=== PATIENT | male | born 1960 | race Caucasian/White ===

== ENCOUNTER → 2016-05-19 | Outpatient (POV) | payer BC, OTHER ==
[~2016-05-19] MED LIST: AMLO25TA PO; AMLO5TAB2 PO; ASPI325T PO; ASPI81TA85 PO; ATEN25TA PO; ATOR40TA PO; BENA25CA2 PO; COUM1TAB17 PO; ELIQ5TAB PO; FENO160T10 PO; FLEC1TAB PO; FLEC50TA PO; LEVO100T5 PO; LEVO137T2 PO; LIPI20TA PO; LOSA25TA8 PO; PERC5TAB6 PO; SPIR25TA2 PO; ZYRT10TA2 PO; levothroid PO
== END ==
LOC: M IRPOV 08:26
DX: I83.228 Varicose veins of left lower extremity with both ulcer of other part of lower extremity and inflammation (principal); I83.813 Varicose veins of bilateral lower extremities with pain; I83.893 Varicose veins of bilateral lower extremities with other complications

== ENCOUNTER → 2016-05-21 | Outpatient (CLI) | payer BC, OTHER ==
--- NOTE | 2016-05-21 14:38 | REP ---
Unilateral right lower extremity duplex venous ultrasound with reflux evaluation: History: Bilateral varicose veins. Right leg reflux. Technique: The deep veins in the right lower extremity are anechoic and fully compressible on two-dimensional scanning from the right groin to the right popliteal fossa. Color flow imaging is homogeneous. Spectral Doppler interrogation demonstrates intact respiratory variation in flow and normal manual augmentation of flow. There is no evidence of DVT. Reflux findings: Reflux greater than 0.5 seconds in duration is seen in the vein. Reflux measuring 1.8 seconds in duration is seen in the greater saphenous vein at the saphenofemoral junction where the vein measures 6.9 mm in AP dimension. This was observed in the standing position. Reflux is observed in the greater saphenous vein at mid thigh, 3.8 seconds in duration where the vein measures 6.8 mm in AP dimension. Reflux was observed in the greater saphenous vein at the level of the knee, 4.0 seconds in duration where the vein measures 8.9 mm in AP dimension. The greater saphenous vein in the upper calf demonstrates reflux of 5.2 seconds in duration. The vein measures 5.4 mm. No reflux was observed in the superficial femoral vein, popliteal vein. No anterior accessory greater saphenous vein was seen. There are multiple small collaterals off the greater saphenous vein in the upper thigh and collateral vein becoming a varicose vein is seen in the upper calf. Impression: Multilevel venous reflux as described above. Signed by Lorenzo Hicks MD 05/21/2016 02:42 P
== END ==
LOC: M RAD 10:58
DX: I83.93 Asymptomatic varicose veins of bilateral lower extremities (principal)

== ENCOUNTER 2016-06-22 15:42 | Emergency (ER) | payer BC, OTHER ==
[2016-06-22] MEDS ORDERED: dexameTHASONE 20 MG/5 ML VIAL (J1100) As Ordered ONE (16:04)
[2016-06-22] MEDS ORDERED: FAMOTIDINE INJ 20MG/2ML VIAL (S0028) As Ordered ONE (16:05)
[2016-06-22] MEDS ORDERED: diphenhydrAMINE INJ 50MG/ML VIAL (J1200) As Ordered ONE (16:05)
--- NOTE | 2016-06-22 18:48 | EDDOCDS ---
Physician Documentation [facility] Name: Nelson Michelle Age: 56 yrs Sex: Male : 1960 Arrival Date: 06/22/2016 Time: 15:42 Bed 11 Private MD: Brando Toro H. Disposition: 06/22/16 18:08 Discharged to Home/Self Care. Impression: Anaphylactic reaction due to shellfish (crustaceans). - Condition is Stable. - Discharge Instructions: Seafood Allergy. - Prescriptions for Benadryl 25 mg Oral Capsule - take 1 capsule by ORAL route every 6 hours As needed; 30 tablet. Prilosec 20 mg Oral Capsule - take 1 capsule by ORAL route once daily; 10 capsule. Prednisone 20 mg Oral Tablet - take 1 tablet by ORAL route as directed Day 1-3: 3 po, day 4-7: 2 po, day 8-10: 1 po; 20 tablet. - Medication Reconciliation, Local Pharmacy Hours form. - Follow up: Brando Toro; When: 4 - 5 days; Reason: Recheck today's complaints, Continuance of care. - Problem is an acute exacerbation. - Symptoms have improved. - Notes: return any problems Historical: - Allergies: PENICILLINS; STEPH Inhibitors (cough); - Home Meds: 1. aspirin 81 mg Oral chew 1 tab once daily (Last dose: 06/22/2016 07:30) 2. Chlorthalidone 12.5mg Oral once daily (Last dose: 06/22/2016 09:30) 3. Eliquis 5 mg oral tab daily (Last dose: 06/21/2016) 4. fenofibrate 150 mg oral cap 1 cap once daily (Last dose: 06/21/2016) 5. Spironolactone 12.5mg Oral nightly (Last dose: 06/21/2016) 6. lamotrigine 100 mg Oral TbDL 1 tab 2 times per day (Last dose: 06/22/2016 09:30) 7. Levothyroxine 237 mcg Oral once daily (Last dose: 06/22/2016 09:30) 8. metoprolol tartrate 25 mg Oral tab 1 tab once daily (Last dose: 06/21/2016) 9. Norvasc 10 mg Oral tab 1 tab once daily (Last dose: 06/22/2016 09:30) 10. omeprazole 40 mg Oral cpDR 1 cap 2 times per day (Last dose: 06/22/2016 09:30) - PMHx: Seizures; Hypercholesterolemia; Hypertension; GERD; Stroke; thyroid cancer; tonsilar ca; padgets; Sleep Apnea w/ BiPap; VENOUS INSUFFICIENCY IN LEGS; LEFT RADICAL NECK DISSECTION; - PSHx: open heart surgery; thyroidectomy; Tonsillectomy; a fib; loop recorder; CABG; HEART ABLATION; TESTICULAR TORSION; Lasik Surgery; - Social history: Smoking status: other No barriers to communication noted, The patient speaks fluent Welsh, Speaks appropriately for age. - : The pt / caregiver states he / she is on anticoagulants: Eliquis Home medication list is obtained from family members. - Exposure Risk Screening:: None identified. Vital Signs: 06/22 15:44 BP 151 / 83; Pulse 88; Resp 18 S; Temp 98.4; Pulse Ox 97% on R/A; Weight 111.13 kg / gr2 245 lbs (R); Height 5 ft. 8 in. (172.72 cm) (R); Pain 3/10; 16:17 BP 145 / 88; Pulse 80; Resp 20 S; Pulse Ox 98% on R/A; ms2 18:46 BP 136 / 78; Pulse 76; Resp 16; Pulse Ox 97% on R/A; mem 15:44 Body Mass Index 37.25 (111.13 kg, 172.72 cm) gr2 MDM: 16:03 Dexamethasone 10 mg IV at bolus once ordered. sd1 16:03 diphenhydrAMINE 50 mg IVP once ordered. sd1 16:03 Famotidine 20 mg IVPB once over 30 mins; dilute in 50mL of NS ordered. sd1 16:09 NS 0.9% 1000 ml IV at bolus once ordered. 18:08 Financial registration complete. [email or web address] 18:16 [facility] Agreement was scanned into [employer] and attached to record. [email or web address] Administered Medications: 16:05 Drug: diphenhydrAMINE 50 mg [diphenhydramine 50 mg/mL injection solution (1 mL)] Route: ms2 IVP; Site: left antecubital; 16:17 Follow up: BP 145 / 88; Pulse 80 bpm; Resp 20 bpm Spontaneous; Pulse Ox 98% RA ms2 16:11 Drug: Dexamethasone 10 mg [dexamethasone 4 mg/mL injection solution] Route: IV; Rate: ms2 bolus; Site: left antecubital; 16:12 Drug: Famotidine 20 mg [famotidine 10 mg/mL intravenous solution] Route: IVPB; Infused ms2 Over: 30 mins; Site: left antecubital; 16:18 Drug: NS 0.9% 1000 ml [sodium chloride 0.9 % intravenous solution] Route: IV; Rate: ms2 bolus; Site: left antecubital; 18:42 Follow up: IV Status: Completed infusion; IV Intake: 1000ml mem Signatures: Maddison Noriega MD MD sd1 Juliet Kumar RN RN [facility] Randy Carolina, TRAVEL COUNSELOR TRAVEL COUNSELOR Deya Oconnell RN RN [facility] Katheryn Schaeffer, Reg Reg [email or web address] Jc Emerson RN ms2 The chart was reviewed and I authenticate all verbal orders and agree with the evaluation and treatment provided.Attachments: 18:16 [facility] Payment Agreement [email or web address] MTDD
--- NOTE | 2016-06-22 18:48 | EDDOCDS ---
Nurse's Notes [facility] Name: Nelson Michelle Age: 56 yrs Sex: Male : 1960 Arrival Date: 06/22/2016 Time: 15:42 Bed 11 Private MD: Brando Toro H. Diagnosis: Anaphylactic reaction due to shellfish (crustaceans) Presentation: 06/22 15:55 Presenting complaint: Patient states: ate clam chowder at noon time. started swelling srm to eyes at 1410 and 50mg benadryl at 1430. swelling to lip and throat scratchy. Onset: The symptoms/episode began/occurred 2 hour(s) ago. This patient has not experienced a previous allergic reaction. Anaphylaxis evaluation, the patient reports or I have noted the following symptoms which indicate a significant risk of anaphylaxis: angioedema. Adult Sepsis Screening: The patient does not have new or worsening altered mentation. Patient's respiratory rate is less than 22. Systolic blood pressure is greater than 100. Patient has a qSOFA score of 0- Negative Sepsis Screen. Suicide/Homicide risk assessment- the patient denies having any suicidal and/or homicidal ideations and does not present with any other emotional, behavioral or mental health complaints. Status: Patient is not a lawn service worker or dependent. Transition of care: patient was not received from another setting of care. 15:55 Acuity: ZAY Level 2 [facility] 15:55 Method Of Arrival: Walkin/Carried/Asstd [facility] Triage Assessment: 16:04 General: Appears in no apparent distress, Behavior is appropriate for age, cooperative. srm Pain: Denies pain. Respiratory: Reports THROAT SCRATCHY. Historical: - Allergies: PENICILLINS; STEPH Inhibitors (cough); - Home Meds: 1. aspirin 81 mg Oral chew 1 tab once daily (Last dose: 06/22/2016 07:30) 2. Chlorthalidone 12.5mg Oral once daily (Last dose: 06/22/2016 09:30) 3. Eliquis 5 mg oral tab daily (Last dose: 06/21/2016) 4. fenofibrate 150 mg oral cap 1 cap once daily (Last dose: 06/21/2016) 5. Spironolactone 12.5mg Oral nightly (Last dose: 06/21/2016) 6. lamotrigine 100 mg Oral TbDL 1 tab 2 times per day (Last dose: 06/22/2016 09:30) 7. Levothyroxine 237 mcg Oral once daily (Last dose: 06/22/2016 09:30) 8. metoprolol tartrate 25 mg Oral tab 1 tab once daily (Last dose: 06/21/2016) 9. Norvasc 10 mg Oral tab 1 tab once daily (Last dose: 06/22/2016 09:30) 10. omeprazole 40 mg Oral cpDR 1 cap 2 times per day (Last dose: 06/22/2016 09:30) - PMHx: Seizures; Hypercholesterolemia; Hypertension; GERD; Stroke; thyroid cancer; tonsilar ca; padgets; Sleep Apnea w/ BiPap; VENOUS INSUFFICIENCY IN LEGS; LEFT RADICAL NECK DISSECTION; - PSHx: open heart surgery; thyroidectomy; Tonsillectomy; a fib; loop recorder; CABG; HEART ABLATION; TESTICULAR TORSION; Lasik Surgery; - Social history: Smoking status: other No barriers to communication noted, The patient speaks fluent Paraguayan, Speaks appropriately for age. - : The pt / caregiver states he / she is on anticoagulants: Eliquis Home medication list is obtained from family members. - Exposure Risk Screening:: None identified. Screenin:22 Screening information is obtained from the patient. Fall risk: No risks identified. ms2 Assistance ADL's: requires no assistance with activities of daily living. Abuse/DV Screen: The patient / caregiver reports he/she is: not in a situation that causes fear, pain or injury. Nutritional screening: No deficits noted. Advance Directives: Currently, there is a health care proxy, -aleksandar. There is no active DNR order. There is no living will. There is no Power of Trade Specialist. Advance directive information has not previously been placed in an [facility] medical record. Further advance directive information is declined. home support is adequate. Assessment: 16:10 General: Appears in no apparent distress, Behavior is cooperative, family with pt. ms2 Neurological: Level of Consciousness is awake, alert, obeys commands. Respiratory: Airway is patent Respiratory effort is even, unlabored, Respiratory pattern is regular, symmetrical, Respiratory: Breath sounds are clear bilaterally. GI: Abdomen is flat, non- distended. Derm: Skin is pink, warm & dry. Musculoskeletal: Range of motion intact in all extremities. 16:45 General: Appears in no apparent distress, Behavior is cooperative. Neurological: No ms2 deficits noted. Respiratory: No deficits noted. Airway is patent Respiratory effort is even, unlabored, Respiratory pattern is regular, symmetrical, tongue not swollen-voice raspy-no change from 1610 Breath sounds are clear bilaterally. GI: No deficits noted. Derm: Skin is pink, warm & dry. Musculoskeletal: No deficits noted. 17:21 General: Appears in no apparent distress, Behavior is cooperative, pleasant. Pain: jc4 Denies pain. Neurological: Level of Consciousness is awake, alert, Oriented to person, place, time. EENT: Denies any difficulty swallowing, is able to accommodate saliva. Cardiovascular: Heart tones S1 S2 present. Respiratory: Airway is patent Respiratory effort is even, unlabored, Respiratory pattern is regular, symmetrical, Breath sounds are clear bilaterally. Derm: Skin is pink, warm & dry. swelling noted surrounding both eyes. Pt states "I wasn't even able to see earlier, but I can a little bit now". Vital Signs: 15:44 BP 151 / 83; Pulse 88; Resp 18 S; Temp 98.4; Pulse Ox 97% on R/A; Weight 111.13 kg (R); gr2 Height 5 ft. 8 in. (172.72 cm) (R); Pain 3/10; 16:17 BP 145 / 88; Pulse 80; Resp 20 S; Pulse Ox 98% on R/A; ms2 18:46 BP 136 / 78; Pulse 76; Resp 16; Pulse Ox 97% on R/A; mem 15:44 Body Mass Index 37.25 (111.13 kg, 172.72 cm) gr2 Vitals: 15:44 Log In Time: June 22, 2016 at 15:44. RN notified that patient meets Red Flag gr2 criteria. ED Course: 15:44 Patient visited by Nelida Bajwa. gr2 15:44 Brando Toro is Private Physician. gr2 15:44 Patient moved to Waiting gr2 15:46 Patient visited by Nelida Bajwa. gr2 15:47 Patient visited by Nelida Bajwa. gr2 15:52 Patient moved to srm 15:57 Triage Initiated srm 16:05 Randy Carolina FNP [facility]. ke 16:05 Patient visited by Randy Carolina FNP. ke 16:05 Patient visited by Randy Carolina FNP. ke 16:23 The patient / caregiver is instructed regarding the plan of care and ED course. ms2 16:23 IV is patent, is intact, is free of redness or swelling. solution is infusing as ms2 ordered. pt has a # 18 in left ac-clear. No procedures done that require assistance. 16:40 Patient visited by Randy Carolina FNP. ke 16:49 Patient visited by Jc Emerson RN. ms2 16:50 The patient / caregiver is instructed regarding the plan of care and ED course. ms2 16:50 IV is patent, is intact, is free of redness or swelling. solution is infusing as ms2 ordered. 17:02 Mayelin Cano,J CARLOS is Primary Nurse. [facility] 17:02 Patient moved to 11 [facility] 17:21 Patient visited by Randy Carolina FNP. ke 17:22 Patient visited by Odalis Soriano RN. jc4 17:49 Patient visited by Randy Carolina FNP. ke 18:07 Brando Toro is Referral Physician. ke 18:16 [facility] Payment Agreement was scanned into [employer] and attached to record. [email or web address] 18:43 Discontinued bleeding controlled, pressure dressing applied, No redness/swelling at mem site. patient tolerated removal well. Administered Medications: 16:05 Drug: diphenhydrAMINE 50 mg [diphenhydramine 50 mg/mL injection solution (1 mL)] Route: ms2 IVP; Site: left antecubital; 16:17 Follow up: BP 145 / 88; Pulse 80 bpm; Resp 20 bpm Spontaneous; Pulse Ox 98% RA ms2 16:11 Drug: Dexamethasone 10 mg [dexamethasone 4 mg/mL injection solution] Route: IV; Rate: ms2 bolus; Site: left antecubital; 16:12 Drug: Famotidine 20 mg [famotidine 10 mg/mL intravenous solution] Route: IVPB; Infused ms2 Over: 30 mins; Site: left antecubital; 16:18 Drug: NS 0.9% 1000 ml [sodium chloride 0.9 % intravenous solution] Route: IV; Rate: ms2 bolus; Site: left antecubital; 18:42 Follow up: IV Status: Completed infusion; IV Intake: 1000ml mem Intake: 18:42 IV: 1000.00ml; Total: 1000.00ml. mem Order Results: There are currently no results for this order. Outcome: 18:08 Discharge ordered by Provider. [email or web address] 18:44 Discharge Assessment: Patient awake, alert and oriented x 3. No cognitive and/or mem functional deficits noted. Patient verbalized understanding of disposition instructions. swelling to eyes reduced, patient states he is feeling much better. at bedside. Iv removed, discharge instructions given to patient. Verbalized understanding. Discharged to home ambulatory, with family, walked to the waiting room with . 18:47 Patient left the ED. mem Signatures: Jc Emerson,RN RN ms2 Juliet Kumar RN RN srm Peters, Mary RN RN [facility] Randy Carolina FNP SUPERINTENDENT MAINTENANCE Odalis Pete RN RN Nelida Bragg [facility] Deya Nunez RN RN mem Sorenson, Kimberly, Reg Reg ks16 BRANDON
--- NOTE | 2016-06-24 19:48 | EDDOCDS ---
Physician Documentation [facility] Name: Nelson Michelle Age: 56 yrs Sex: Male : 1960 Arrival Date: 06/22/2016 Time: 15:42 Bed 11 Private MD: Brando Toro H. Disposition: 06/22/16 18:08 Discharged to Home/Self Care. Impression: Anaphylactic reaction due to shellfish (crustaceans). - Condition is Stable. - Discharge Instructions: Seafood Allergy. - Prescriptions for Benadryl 25 mg Oral Capsule - take 1 capsule by ORAL route every 6 hours As needed; 30 tablet. Prilosec 20 mg Oral Capsule - take 1 capsule by ORAL route once daily; 10 capsule. Prednisone 20 mg Oral Tablet - take 1 tablet by ORAL route as directed Day 1-3: 3 po, day 4-7: 2 po, day 8-10: 1 po; 20 tablet. - Medication Reconciliation, Local Pharmacy Hours form. - Follow up: Brando Toro; When: 4 - 5 days; Reason: Recheck today's complaints, Continuance of care. - Problem is an acute exacerbation. - Symptoms have improved. - Notes: return any problems Historical: - Allergies: PENICILLINS; STEPH Inhibitors (cough); - Home Meds: 1. aspirin 81 mg Oral chew 1 tab once daily (Last dose: 06/22/2016 07:30) 2. Chlorthalidone 12.5mg Oral once daily (Last dose: 06/22/2016 09:30) 3. Eliquis 5 mg oral tab daily (Last dose: 06/21/2016) 4. fenofibrate 150 mg oral cap 1 cap once daily (Last dose: 06/21/2016) 5. Spironolactone 12.5mg Oral nightly (Last dose: 06/21/2016) 6. lamotrigine 100 mg Oral TbDL 1 tab 2 times per day (Last dose: 06/22/2016 09:30) 7. Levothyroxine 237 mcg Oral once daily (Last dose: 06/22/2016 09:30) 8. metoprolol tartrate 25 mg Oral tab 1 tab once daily (Last dose: 06/21/2016) 9. Norvasc 10 mg Oral tab 1 tab once daily (Last dose: 06/22/2016 09:30) 10. omeprazole 40 mg Oral cpDR 1 cap 2 times per day (Last dose: 06/22/2016 09:30) - PMHx: Seizures; Hypercholesterolemia; Hypertension; GERD; Stroke; thyroid cancer; tonsilar ca; padgets; Sleep Apnea w/ BiPap; VENOUS INSUFFICIENCY IN LEGS; LEFT RADICAL NECK DISSECTION; - PSHx: open heart surgery; thyroidectomy; Tonsillectomy; a fib; loop recorder; CABG; HEART ABLATION; TESTICULAR TORSION; Lasik Surgery; - Social history: Smoking status: other No barriers to communication noted, The patient speaks fluent Estonian, Speaks appropriately for age. - : The pt / caregiver states he / she is on anticoagulants: Eliquis Home medication list is obtained from family members. - Exposure Risk Screening:: None identified. Vital Signs: 06/22 15:44 BP 151 / 83; Pulse 88; Resp 18 S; Temp 98.4; Pulse Ox 97% on R/A; Weight 111.13 kg / gr2 245 lbs (R); Height 5 ft. 8 in. (172.72 cm) (R); Pain 3/10; 16:17 BP 145 / 88; Pulse 80; Resp 20 S; Pulse Ox 98% on R/A; ms2 18:46 BP 136 / 78; Pulse 76; Resp 16; Pulse Ox 97% on R/A; mem 15:44 Body Mass Index 37.25 (111.13 kg, 172.72 cm) gr2 MDM: 16:03 Dexamethasone 10 mg IV at bolus once ordered. sd1 16:03 diphenhydrAMINE 50 mg IVP once ordered. sd1 16:03 Famotidine 20 mg IVPB once over 30 mins; dilute in 50mL of NS ordered. sd1 16:09 NS 0.9% 1000 ml IV at bolus once ordered. 18:08 Financial registration complete. [email or web address] 18:16 [facility] Payment Agreement was scanned into [employer] and attached to record. [facility] 06/23 13:46 T-Sheet-- Draft Copy was scanned into [employer] and attached to record. gb Administered Medications: 06/22 16:05 Drug: diphenhydrAMINE 50 mg [diphenhydramine 50 mg/mL injection solution (1 mL)] Route: ms2 IVP; Site: left antecubital; 16:17 Follow up: BP 145 / 88; Pulse 80 bpm; Resp 20 bpm Spontaneous; Pulse Ox 98% RA ms2 16:11 Drug: Dexamethasone 10 mg [dexamethasone 4 mg/mL injection solution] Route: IV; Rate: ms2 bolus; Site: left antecubital; 16:12 Drug: Famotidine 20 mg [famotidine 10 mg/mL intravenous solution] Route: IVPB; Infused ms2 Over: 30 mins; Site: left antecubital; 16:18 Drug: NS 0.9% 1000 ml [sodium chloride 0.9 % intravenous solution] Route: IV; Rate: ms2 bolus; Site: left antecubital; 18:42 Follow up: IV Status: Completed infusion; IV Intake: 1000ml mem Signatures: Maddison Noriega MD MD sd1 Juliet Kumar RN RN [facility] Preeti Jc, Reg Reg Randy Carolina, KNOWLEDGE ENGINEER [facility] Deya Oconnell RN RN [facility] Katheryn Schaeffer, Reg Reg [email or web address] Jc Emerson RN ms2 The chart was reviewed and I authenticate all verbal orders and agree with the evaluation and treatment provided.Attachments: 18:16 [facility] Payment Agreement [email or web address] 06/23 13:46 T-Sheet-- Draft Copy Chart Complete MTDD
--- NOTE | 2016-06-24 19:48 | EDDOCDS ---
Physician Documentation [facility] Name: Nelson Michelle Age: 56 yrs Sex: Male : 1960 Arrival Date: 06/22/2016 Time: 15:42 Bed 11 Private MD: Brando Toro H. Disposition: 06/22/16 18:08 Discharged to Home/Self Care. Impression: Anaphylactic reaction due to shellfish (crustaceans). - Condition is Stable. - Discharge Instructions: Seafood Allergy. - Prescriptions for Benadryl 25 mg Oral Capsule - take 1 capsule by ORAL route every 6 hours As needed; 30 tablet. Prilosec 20 mg Oral Capsule - take 1 capsule by ORAL route once daily; 10 capsule. Prednisone 20 mg Oral Tablet - take 1 tablet by ORAL route as directed Day 1-3: 3 po, day 4-7: 2 po, day 8-10: 1 po; 20 tablet. - Medication Reconciliation, Local Pharmacy Hours form. - Follow up: Brando Toro; When: 4 - 5 days; Reason: Recheck today's complaints, Continuance of care. - Problem is an acute exacerbation. - Symptoms have improved. - Notes: return any problems Historical: - Allergies: PENICILLINS; STEPH Inhibitors (cough); - Home Meds: 1. aspirin 81 mg Oral chew 1 tab once daily (Last dose: 06/22/2016 07:30) 2. Chlorthalidone 12.5mg Oral once daily (Last dose: 06/22/2016 09:30) 3. Eliquis 5 mg oral tab daily (Last dose: 06/21/2016) 4. fenofibrate 150 mg oral cap 1 cap once daily (Last dose: 06/21/2016) 5. Spironolactone 12.5mg Oral nightly (Last dose: 06/21/2016) 6. lamotrigine 100 mg Oral TbDL 1 tab 2 times per day (Last dose: 06/22/2016 09:30) 7. Levothyroxine 237 mcg Oral once daily (Last dose: 06/22/2016 09:30) 8. metoprolol tartrate 25 mg Oral tab 1 tab once daily (Last dose: 06/21/2016) 9. Norvasc 10 mg Oral tab 1 tab once daily (Last dose: 06/22/2016 09:30) 10. omeprazole 40 mg Oral cpDR 1 cap 2 times per day (Last dose: 06/22/2016 09:30) - PMHx: Seizures; Hypercholesterolemia; Hypertension; GERD; Stroke; thyroid cancer; tonsilar ca; padgets; Sleep Apnea w/ BiPap; VENOUS INSUFFICIENCY IN LEGS; LEFT RADICAL NECK DISSECTION; - PSHx: open heart surgery; thyroidectomy; Tonsillectomy; a fib; loop recorder; CABG; HEART ABLATION; TESTICULAR TORSION; Lasik Surgery; - Social history: Smoking status: other No barriers to communication noted, The patient speaks fluent Danish, Speaks appropriately for age. - : The pt / caregiver states he / she is on anticoagulants: Eliquis Home medication list is obtained from family members. - Exposure Risk Screening:: None identified. Vital Signs: 06/22 15:44 BP 151 / 83; Pulse 88; Resp 18 S; Temp 98.4; Pulse Ox 97% on R/A; Weight 111.13 kg / gr2 245 lbs (R); Height 5 ft. 8 in. (172.72 cm) (R); Pain 3/10; 16:17 BP 145 / 88; Pulse 80; Resp 20 S; Pulse Ox 98% on R/A; ms2 18:46 BP 136 / 78; Pulse 76; Resp 16; Pulse Ox 97% on R/A; mem 15:44 Body Mass Index 37.25 (111.13 kg, 172.72 cm) gr2 MDM: 16:03 Dexamethasone 10 mg IV at bolus once ordered. sd1 16:03 diphenhydrAMINE 50 mg IVP once ordered. sd1 16:03 Famotidine 20 mg IVPB once over 30 mins; dilute in 50mL of NS ordered. sd1 16:09 NS 0.9% 1000 ml IV at bolus once ordered. 18:08 Financial registration complete. [email or web address] 18:16 [facility] Payment Agreement was scanned into [employer] and attached to record. [facility] 06/23 13:46 T-Sheet-- Draft Copy was scanned into [employer] and attached to record. gb Administered Medications: 06/22 16:05 Drug: diphenhydrAMINE 50 mg [diphenhydramine 50 mg/mL injection solution (1 mL)] Route: ms2 IVP; Site: left antecubital; 16:17 Follow up: BP 145 / 88; Pulse 80 bpm; Resp 20 bpm Spontaneous; Pulse Ox 98% RA ms2 16:11 Drug: Dexamethasone 10 mg [dexamethasone 4 mg/mL injection solution] Route: IV; Rate: ms2 bolus; Site: left antecubital; 16:12 Drug: Famotidine 20 mg [famotidine 10 mg/mL intravenous solution] Route: IVPB; Infused ms2 Over: 30 mins; Site: left antecubital; 16:18 Drug: NS 0.9% 1000 ml [sodium chloride 0.9 % intravenous solution] Route: IV; Rate: ms2 bolus; Site: left antecubital; 18:42 Follow up: IV Status: Completed infusion; IV Intake: 1000ml mem Signatures: Maddison Noriega MD MD sd1 Juliet Kumar RN RN [facility] Preeti Jc, Reg Reg Randy Carolina, [facility] Deya Oconnell RN RN [facility] [place] [place] Katheryn Schaeffer, Reg Reg [email or web address] Jc Emerson RN ms2 The chart was reviewed and I authenticate all verbal orders and agree with the evaluation and treatment provided.Attachments: 18:16 [facility] Payment Agreement [email or web address] 06/23 13:46 T-Sheet-- Draft Copy Chart Complete MTDD
--- NOTE | 2016-06-24 19:48 | EDDOCDS ---
Nurse's Notes [facility] Name: Nelson Michelle Age: 56 yrs Sex: Male : 1960 Arrival Date: 06/22/2016 Time: 15:42 Bed 11 Private MD: Brando Toro H. Diagnosis: Anaphylactic reaction due to shellfish (crustaceans) Presentation: 06/22 15:55 Presenting complaint: Patient states: ate clam chowder at noon time. started swelling srm to eyes at 1410 and 50mg benadryl at 1430. swelling to lip and throat scratchy. Onset: The symptoms/episode began/occurred 2 hour(s) ago. This patient has not experienced a previous allergic reaction. Anaphylaxis evaluation, the patient reports or I have noted the following symptoms which indicate a significant risk of anaphylaxis: angioedema. Adult Sepsis Screening: The patient does not have new or worsening altered mentation. Patient's respiratory rate is less than 22. Systolic blood pressure is greater than 100. Patient has a qSOFA score of 0- Negative Sepsis Screen. Suicide/Homicide risk assessment- the patient denies having any suicidal and/or homicidal ideations and does not present with any other emotional, behavioral or mental health complaints. Status: Patient is not a member service specialist or dependent. Transition of care: patient was not received from another setting of care. 15:55 Acuity: ZAY Level 2 [facility] 15:55 Method Of Arrival: Walkin/Carried/Asstd [facility] Triage Assessment: 16:04 General: Appears in no apparent distress, Behavior is appropriate for age, cooperative. srm Pain: Denies pain. Respiratory: Reports THROAT SCRATCHY. Historical: - Allergies: PENICILLINS; STEPH Inhibitors (cough); - Home Meds: 1. aspirin 81 mg Oral chew 1 tab once daily (Last dose: 06/22/2016 07:30) 2. Chlorthalidone 12.5mg Oral once daily (Last dose: 06/22/2016 09:30) 3. Eliquis 5 mg oral tab daily (Last dose: 06/21/2016) 4. fenofibrate 150 mg oral cap 1 cap once daily (Last dose: 06/21/2016) 5. Spironolactone 12.5mg Oral nightly (Last dose: 06/21/2016) 6. lamotrigine 100 mg Oral TbDL 1 tab 2 times per day (Last dose: 06/22/2016 09:30) 7. Levothyroxine 237 mcg Oral once daily (Last dose: 06/22/2016 09:30) 8. metoprolol tartrate 25 mg Oral tab 1 tab once daily (Last dose: 06/21/2016) 9. Norvasc 10 mg Oral tab 1 tab once daily (Last dose: 06/22/2016 09:30) 10. omeprazole 40 mg Oral cpDR 1 cap 2 times per day (Last dose: 06/22/2016 09:30) - PMHx: Seizures; Hypercholesterolemia; Hypertension; GERD; Stroke; thyroid cancer; tonsilar ca; padgets; Sleep Apnea w/ BiPap; VENOUS INSUFFICIENCY IN LEGS; LEFT RADICAL NECK DISSECTION; - PSHx: open heart surgery; thyroidectomy; Tonsillectomy; a fib; loop recorder; CABG; HEART ABLATION; TESTICULAR TORSION; Lasik Surgery; - Social history: Smoking status: other No barriers to communication noted, The patient speaks fluent Emirati, Speaks appropriately for age. - : The pt / caregiver states he / she is on anticoagulants: Eliquis Home medication list is obtained from family members. - Exposure Risk Screening:: None identified. Screenin:22 Screening information is obtained from the patient. Fall risk: No risks identified. ms2 Assistance ADL's: requires no assistance with activities of daily living. Abuse/DV Screen: The patient / caregiver reports he/she is: not in a situation that causes fear, pain or injury. Nutritional screening: No deficits noted. Advance Directives: Currently, there is a health care proxy, -aleksandar. There is no active DNR order. There is no living will. There is no Power of Tobacco Farmworker. Advance directive information has not previously been placed in an [facility] medical record. Further advance directive information is declined. home support is adequate. Assessment: 16:10 General: Appears in no apparent distress, Behavior is cooperative, family with pt. ms2 Neurological: Level of Consciousness is awake, alert, obeys commands. Respiratory: Airway is patent Respiratory effort is even, unlabored, Respiratory pattern is regular, symmetrical, Respiratory: Breath sounds are clear bilaterally. GI: Abdomen is flat, non- distended. Derm: Skin is pink, warm & dry. Musculoskeletal: Range of motion intact in all extremities. 16:45 General: Appears in no apparent distress, Behavior is cooperative. Neurological: No ms2 deficits noted. Respiratory: No deficits noted. Airway is patent Respiratory effort is even, unlabored, Respiratory pattern is regular, symmetrical, tongue not swollen-voice raspy-no change from 1610 Breath sounds are clear bilaterally. GI: No deficits noted. Derm: Skin is pink, warm & dry. Musculoskeletal: No deficits noted. 17:21 General: Appears in no apparent distress, Behavior is cooperative, pleasant. Pain: jc4 Denies pain. Neurological: Level of Consciousness is awake, alert, Oriented to person, place, time. EENT: Denies any difficulty swallowing, is able to accommodate saliva. Cardiovascular: Heart tones S1 S2 present. Respiratory: Airway is patent Respiratory effort is even, unlabored, Respiratory pattern is regular, symmetrical, Breath sounds are clear bilaterally. Derm: Skin is pink, warm & dry. swelling noted surrounding both eyes. Pt states "I wasn't even able to see earlier, but I can a little bit now". Vital Signs: 15:44 BP 151 / 83; Pulse 88; Resp 18 S; Temp 98.4; Pulse Ox 97% on R/A; Weight 111.13 kg (R); gr2 Height 5 ft. 8 in. (172.72 cm) (R); Pain 3/10; 16:17 BP 145 / 88; Pulse 80; Resp 20 S; Pulse Ox 98% on R/A; ms2 18:46 BP 136 / 78; Pulse 76; Resp 16; Pulse Ox 97% on R/A; mem 15:44 Body Mass Index 37.25 (111.13 kg, 172.72 cm) gr2 Vitals: 15:44 Log In Time: June 22, 2016 at 15:44. RN notified that patient meets Red Flag gr2 criteria. ED Course: 15:44 Patient visited by Nelida Bajwa. gr2 15:44 Brando Toro is Private Physician. gr2 15:44 Patient moved to Waiting gr2 15:46 Patient visited by Nelida Bajwa. gr2 15:47 Patient visited by Nelida Bajwa. gr2 15:52 Patient moved to srm 15:57 Triage Initiated srm 16:05 [facility] Carolina [facility] ke 16:05 Patient visited by Randy Carolina FNP. ke 16:05 Patient visited by Randy Carolina FNP. ke 16:23 The patient / caregiver is instructed regarding the plan of care and ED course. ms2 16:23 IV is patent, is intact, is free of redness or swelling. solution is infusing as ms2 ordered. pt has a # 18 in left ac-clear. No procedures done that require assistance. 16:40 Patient visited by Randy Carolina FNP. ke 16:49 Patient visited by Jc Emerson RN. ms2 16:50 The patient / caregiver is instructed regarding the plan of care and ED course. ms2 16:50 IV is patent, is intact, is free of redness or swelling. solution is infusing as ms2 ordered. 17:02 Mayelin Cano,J CARLOS is Primary Nurse. [facility] 17:02 Patient moved to 11 [facility] 17:21 Patient visited by Randy Carolina FNP. ke 17:22 Patient visited by Odalis Soriano RN. jc4 17:49 Patient visited by Randy Carolina FNP. ke 18:07 Brando Toro is Referral Physician. ke 18:16 [facility] Payment Agreement was scanned into Topic and attached to record. ks16 18:43 Discontinued bleeding controlled, pressure dressing applied, No redness/swelling at mem site. patient tolerated removal well. 06/23 13:46 T-Sheet-- Draft Copy was scanned into Topic and attached to record. gb Administered Medications: 06/22 16:05 Drug: diphenhydrAMINE 50 mg [diphenhydramine 50 mg/mL injection solution (1 mL)] Route: ms2 IVP; Site: left antecubital; 16:17 Follow up: BP 145 / 88; Pulse 80 bpm; Resp 20 bpm Spontaneous; Pulse Ox 98% RA ms2 16:11 Drug: Dexamethasone 10 mg [dexamethasone 4 mg/mL injection solution] Route: IV; Rate: ms2 bolus; Site: left antecubital; 16:12 Drug: Famotidine 20 mg [famotidine 10 mg/mL intravenous solution] Route: IVPB; Infused ms2 Over: 30 mins; Site: left antecubital; 16:18 Drug: NS 0.9% 1000 ml [sodium chloride 0.9 % intravenous solution] Route: IV; Rate: ms2 bolus; Site: left antecubital; 18:42 Follow up: IV Status: Completed infusion; IV Intake: 1000ml mem Intake: 18:42 IV: 1000.00ml; Total: 1000.00ml. mem Order Results: There are currently no results for this order. Outcome: 18:08 Discharge ordered by Provider. sukhjinder 18:44 Discharge Assessment: Patient awake, alert and oriented x 3. No cognitive and/or mem functional deficits noted. Patient verbalized understanding of disposition instructions. swelling to eyes reduced, patient states he is feeling much better. at bedside. Iv removed, discharge instructions given to patient. Verbalized understanding. Discharged to home ambulatory, with family, walked to the waiting room with . 18:47 Patient left the ED. mem Signatures: Jc Emerson RN RN [facility] Juliet Kumar RN RN srm Peters, Mary, RN RN mcp Barnhardt, Gloria, Reg Reg gb Randy Carolina, [employer]TER [employer] BAGGER [employer] BAGGER Odalis Pete RN RN Nelida Bragg 2 Deya Nunez RN RN mem Sorenson, Kimberly, Reg Reg [email or web address] Chart Complete [facility]
== END 2016-06-22 18:47 | disposition home or self-care (01) ==
LOC: M ED 15:42
DX: T78.1XXA Other adverse food reactions, not elsewhere classified, initial encounter (principal); R22.1 Localized swelling, mass and lump, neck; Y92.89 Other specified places as the place of occurrence of the external cause; I10 Essential (primary) hypertension; R56.9 Unspecified convulsions; E78.00 Pure hypercholesterolemia, unspecified; K21.9 Gastro-esophageal reflux disease without esophagitis; G47.30 Sleep apnea, unspecified; M88.9 Osteitis deformans of unspecified bone; I87.2 Venous insufficiency (chronic) (peripheral); Z79.899 Other long term (current) drug therapy; Z79.82 Long term (current) use of aspirin; Z79.01 Long term (current) use of anticoagulants; Z86.73 Personal history of transient ischemic attack (TIA), and cerebral infarction without residual deficits; Z88.0 Allergy status to penicillin; Z88.8 Allergy status to other drugs, medicaments and biological substances
CPT/HCPCS: 96361; 96374; 96375; 99283; J1100; J1200

== ENCOUNTER → 2016-08-25 | Outpatient (CLI) | payer BC, OTHER ==
[~2016-08-25] MED LIST changes: +LIDOCAINE 2% MDV 20 ML VIAL As Ordered ONE; +LIDOCAINE 4% CREAM 5GM (LMX4) As Ordered ONE; +SODIUM TETRADECYL SULFATE(3%)30MG/ML 2ML VIAL (SOTRADECOL) As Ordered ONE
--- NOTE | 2016-08-25 18:04 | REPKIM ---
INDICATION: Patient with bilateral lower extremity varicose veins with complications, pain, left leg ulcer history, present for left lower extremity EVLT of the incompetent GSV and sclerotherapy of significant varicosities in the calf leading to prior left leg ulcer area and edema. Ultrasound reflux evaluation of the left leg showed significant reflux involving the greater saphenous vein with the time of reflux 5.1 to 8.2 seconds. This also showed significant reflux involving the deep system. Multiple collateral tributary varicosities communicating with the incompetent greater saphenous vein toward the prior ankle ulcer region. PROCEDURE: 1. Endovenous laser ablation therapy of the incompetent GSV on the left 2. Sclerotherapy of significant collateral varicosities in the calf INTERVENTIONALIST: Nory Moeller MD EMPLOYEE RELATION MANAGER: WINTER Bear IV EBL: 5 mL MEDICATIONS: Local Lidocaine and Sodium Tetradecyl Sulfate 3% diluted to 1.5% DEVICE USED: 45-CM VenaCure EVLT Formerly [facility] Lot#[id number] TECHNIQUE AND FINDINGS: Informed consent was obtained prior to the procedure. The patient was placed supine on the table. A time out was performed that verified correct procedure, site, side and materials available. Ultrasound examination was performed and focused on the saphenofemoral junction of the left leg. This confirmed significant reflux involving the greater saphenous vein as previously described. This also showed significant collateral varicosities in the calf with edema. The patient was placed in the supine position. The left lower extremity was prepped and draped in the usual sterile fashion. After local anesthesia with 1mL of lidocaine 1% at the skin, the incompetent greater saphenous vein above the knee level was accessed with a 21 gauge needle and a 0.018" wire followed by a 4 Danish sheath of the EVLT kit. The sheath was advanced over the wire to the saphenofemoral junction level and the laser fiber was advanced over a guidewire. The catheter tip was positioned approximately 4cm distal from the saphenofemoral junction. Tumescent anesthesia was given along this vein by using real-time ultrasonographic guidance and a 22 gauge spinal needle and a mixture of diluted lidocaine (12.5mL @ 2% in 237.5mL of normal saline). Endovenous laser ablation was applied along the greater saphenous vein using 6 Mccann in continuous mode for a total duration of 172 seconds. A total of 1031 Joules was delivered. Significant collateral varicosity in the knee/calf region was then accessed with a micropuncture needle. Approximately 3-4 mL of sclerotherapy foam (1mL sodium tetradecyl sulfate diluted at 1.5 %) mixed with air at a ratio of 1:4 injected. Compression was maintained. SteriStrips was applied on the skin, followed by 20-30 mm Hg compression stockings. The patient was then allowed to stand and instructed to walk for 15 minutes. He was then discharged back home in good and stable condition with no immediate complication. This procedure was performed with ultrasound guidance. Dr. Moeller was present. IMPRESSION: 1. Successful treatment of symptomatic incompetent GSV in the left lower extremity by endovenous laser ablation. 2. Significant collateral varicosities in the knee/calf also treated with sclerotherapy as discussed above. PLAN: Pt was given post-procedure instructions, including contact information for a follow-up duplex ultrasound of the left lower extremity to rule out DVT and post EVLT/sclerotherapy evaluation in next several days. Patient will need left leg compression stockings for long-term due to significant reflux involving the deep system on the left as documented by the previous duplex/ reflux ultrasound study. Plan to treat the right lower extremity incompetent superficial veins in next several weeks. Ultrasound reflux evaluation of the right leg on 05/21/16 showed significant reflux involving the greater saphenous vein with the time of reflux 1.8- 4.0 seconds. The GSV measures 6.9-8.9 mm in diameter. This also showed significant collateral varicosities in the calf. cc: MD BRANDON Frankel
== END | disposition home or self-care (01) ==
LOC: M IRPRO 08:26
DX: I83.813 Varicose veins of bilateral lower extremities with pain (principal); I83.228 Varicose veins of left lower extremity with both ulcer of other part of lower extremity and inflammation; I83.893 Varicose veins of bilateral lower extremities with other complications; L97.529 Non-pressure chronic ulcer of other part of left foot with unspecified severity
CPT/HCPCS: 36470; 36478; C1888

== ENCOUNTER → 2016-08-27 | Outpatient (CLI) | payer BC, OTHER ==
[~2016-08-27] MED LIST changes: -LIDOCAINE 2% MDV 20 ML VIAL As Ordered ONE; -LIDOCAINE 4% CREAM 5GM (LMX4) As Ordered ONE; -SODIUM TETRADECYL SULFATE(3%)30MG/ML 2ML VIAL (SOTRADECOL) As Ordered ONE
--- NOTE | 2016-08-27 11:07 | REP ---
Left lower extremity Duplex Doppler venous ultrasound: Real time compression and duplex Doppler interrogation of the left lower extremity deep venous system is performed. The left common femoral, superficial femoral and popliteal veins are fully compressible with transducer pressure and demonstrate normal spontaneous and phasic flow, without evidence of deep venous thrombosis. There is thrombus in the greater saphenous vein which begins 2.5 cm from the saphenofemoral junction. Impression: No evidence of deep venous thrombosis of the left lower extremity femoral popliteal venous system. There is thrombus in the greater saphenous vein which begins 2.5 cm from the saphenofemoral junction. Signed by Kyle Blount MD 08/27/2016 10:58 A
== END ==
LOC: M RAD 10:25
DX: I83.90 Asymptomatic varicose veins of unspecified lower extremity (principal); I82.812 Embolism and thrombosis of superficial veins of left lower extremity

== ENCOUNTER 2019-01-17 10:42 | Day surgery (SDC) | payer BC, OTHER ==
[~2019-01-17] VITALS: Ht 177.8 cm; Wt 110.7 kg
[~2019-01-17 10:42] MED LIST changes: +ALLE180T33 PO; -AMLO5TAB2 PO; +AMLO5TAB6 PO; +ASPI-1 PO; -ASPI325T PO; -ATOR40TA PO; +ATOR40TA75 PO; +CHLO125TA PO; +FLEC50HA PO; -FLEC50TA PO; +K-TA10TA PO; +LAMO100T PO; +LIPI80TA PO; +LOSA25TA14 PO; -LOSA25TA8 PO; +METO1TAB7 PO; +PERC5TAB12 PO; -PERC5TAB6 PO; +SPIR-10 PO; -SPIR25TA2 PO; +ZYRT10CA5 PO; -ZYRT10TA2 PO
[2019-01-17] MEDS: NS 1,000 ML IV ONE (11:55)
[2019-01-17] MEDS ORDERED: PROPOFOL 200 MG/20 ML VIAL As Ordered ONE ×3 (13:31→13:51)
--- NOTE | 2019-01-17 14:06 | ROOR ---
Patient Name: Nelson Michelle Procedure Date: 01/17/2019 1:30 PM Date of : 1960 Age: 58 Room: [facility] Gender: Male Note Status: Finalized Procedure: Colonoscopy Indications: Screening in patient at increased risk: Colorectal cancer in mother before age 60 Providers: Be Arora MD Referring MD: PEACE HOLLEY MD Requesting Provider: Medicines: Monitored Anesthesia Care Complications: No immediate complications. Procedure: Pre-Anesthesia Assessment: - Prior to the procedure, a History and Physical was performed, and patient medications and allergies were reviewed. The patient is competent. The risks and benefits of the procedure and the sedation options and risks were discussed with the patient. All questions were answered and informed consent was obtained. Patient identification and proposed procedure were verified by the physician, the nurse and the anesthesiologist in the procedure room. Mental Status Examination: alert and oriented. CV Examination: regular rate and rhythm. Prophylactic Antibiotics: The patient does not require prophylactic antibiotics. Prior Anticoagulants: The patient has taken no previous anticoagulant or antiplatelet agents. ASA Grade Assessment: III - A patient with severe systemic disease. After reviewing the risks and benefits, the patient was deemed in satisfactory condition to undergo the procedure. The anesthesia plan was to use monitored anesthesia care (MAC). Immediately prior to administration of medications, the patient was re-assessed for adequacy to receive sedatives. The heart rate, respiratory rate, oxygen saturations, blood pressure, adequacy of pulmonary ventilation, and response to care were monitored throughout the procedure. The physical status of the patient was re-assessed after the procedure. The Colonoscope was introduced through the anus and advanced to the cecum, identified by appendiceal orifice and ileocecal valve. Findings: The perianal and digital rectal examinations were normal. A 5 mm polyp was found in the hepatic flexure. The polyp was sessile. The polyp was removed with a piecemeal technique using a hot biopsy forceps. Resection and retrieval were complete. Estimated blood loss: none. A 7 mm polyp was found in the sigmoid colon. The polyp was sessile. The polyp was removed with a hot snare. Resection and retrieval were complete. Estimated blood loss: none. Impression: - One 5 mm polyp at the hepatic flexure, removed piecemeal using a hot biopsy forceps. Resected and retrieved. - One 7 mm polyp in the sigmoid colon, removed with a hot snare. Resected and retrieved. Recommendation: - Discharge patient to home. - Resume previous diet. - Continue present medications. - Await pathology results. - If the pathology report reveals adenomatous tissue, then repeat the colonoscopy for surveillance in 3 - 5 years. Be Arora MD Be Arora MD 01/17/2019 2:05:42 PM Electronically signed by Be Arora MD Number of Addenda: 0 Note Initiated On: 01/17/2019 1:30 PM Estimated Blood Loss: Estimated blood loss: none.
[2019-01-17 14:32] VITALS: BP 132/72
== END 2019-01-17 14:56 | disposition home or self-care (01) ==
LOC: M OPP 10:42
PROVIDERS: ATTEND Surgery
DX: Z12.11 Encounter for screening for malignant neoplasm of colon (principal); Z80.0 Family history of malignant neoplasm of digestive organs; D12.3 Benign neoplasm of transverse colon; D12.5 Benign neoplasm of sigmoid colon; Z79.82 Long term (current) use of aspirin; Z79.899 Other long term (current) drug therapy; Z88.0 Allergy status to penicillin; Z88.8 Allergy status to other drugs, medicaments and biological substances

== ENCOUNTER → 2019-03-03 | Outpatient (REF) | payer BC, OTHER | LOC: M WUC 07:37 | PROVIDERS: ATTEND Physician Assistant | DX: R05 Cough (principal) ==

== ENCOUNTER → 2019-03-04 | Outpatient (REF) | payer OTHER | LOC: M LAB REF 09:38 | DX: R05 Cough (principal) ==

== ENCOUNTER 2019-07-05 06:12 | Day surgery (SDC) | payer BC, OTHER ==
[~2019-07-05] VITALS: Ht 175.3 cm; Wt 116.8 kg
[~2019-07-05 06:12] MED LIST changes: -LAMO100T PO; +LAMO100T3 PO; +LR 1,000 ML IV ONE
[2019-07-05] MEDS ORDERED: BUPIVACAINE HCL 0.25% 30 ML VIAL As Ordered ONE (06:47)
[2019-07-05] MEDS ORDERED: ONDANSETRON 4MG/2ML VIAL (J2405) As Ordered ONE ×2 (07:49→07:59)
[2019-07-05] MEDS ORDERED: propofoL 200 MG/20 ML VIAL As Ordered ONE ×2 (07:49→08:00)
[2019-07-05] MEDS ORDERED: fentaNYL 250 MCG/5 ML INJECTION (J3010) As Ordered ONE (07:49)
[2019-07-05] MEDS ORDERED: LIDOCAINE 2% INJ 100 MG/5 ML SDV (FOR ANES.) As Ordered ONE ×2 (07:49→08:00)
[2019-07-05] MEDS ORDERED: SUGAMMADEX SODIUM 500 MG/5 ML VIAL (BRIDION) As Ordered ONE ×2 (07:49→08:00)
[2019-07-05] MEDS ORDERED: METOCLOPRAMIDE INJ 10MG/2ML VIAL (J2765) As Ordered ONE ×2 (07:49→07:59)
[2019-07-05] MEDS ORDERED: dexameTHASONE 4 MG/ML 1ML VIAL (J1100) As Ordered ONE ×2 (07:49→07:59)
[2019-07-05] MEDS ORDERED: ROCURONIUM BROMIDE 50 MG/5 ML VIAL As Ordered ONE ×3 (07:49→08:07)
[2019-07-05] MEDS ORDERED: MIDAZOLAM INJ 2 MG/2 ML VIAL (J2250) As Ordered ONE (07:49)
[2019-07-05] MEDS ORDERED: METOPROLOL 5 MG/5 ML VIAL As Ordered ONE (07:51)
[2019-07-05] MEDS ORDERED: ePHEDrine SULFATE 25 MG/5 ML(5MG/ML) SYRINGE As Ordered ONE (08:06)
[2019-07-05] MEDS ORDERED: ACETAMINOPHEN 1000MG 100ML IV BTL (OFIRMEV) (J0131 PER 10MG) As Ordered ONE (08:07)
[2019-07-05] MEDS ORDERED: KETOROLAC 60 MG/2 ML VIAL (J1885) As Ordered ONE (09:40)
[2019-07-05] MEDS ORDERED: oxyCODONE 5MG TAB As Ordered ONE (09:59)
[2019-07-05] MEDS ORDERED: fentaNYL 100 MCG/2 ML INJECTION (J3010) As Ordered ONE (09:59)
[2019-07-05] MEDS ORDERED: PERCOCET 5MG/325MG TAB PO PRN (10:00)
[2019-07-05] MEDS ORDERED: ONDANSETRON 4MG/2ML VIAL (J2405) IV PRN (10:00)
[2019-07-05] MEDS ORDERED: LR 1,000 ML IV SCH (10:00)
[2019-07-05] MEDS ORDERED: fentaNYL 100 MCG/2 ML INJECTION (J3010) IV PRN (10:00)
[2019-07-05] MEDS ORDERED: oxyCODONE 5MG TAB PO PRN (10:15)
[2019-07-05] MEDS ORDERED: ACETAMINOPHEN TAB 650MG DOSE (2X325MG) PO PRN (11:01)
[2019-07-05] MEDS ORDERED: NORCO, ANEXSIA 5/325MG TABLET (HYDROcodone/ACETAMINOPHEN) PO PRN (11:01)
[2019-07-05 12:10] VITALS: BP 123/66
--- NOTE | 2019-07-10 09:29 | RO ---
DATE OF PROCEDURE: 07/05/2019 PREOPERATIVE DIAGNOSIS: Incarcerated umbilical hernia. POSTOPERATIVE DIAGNOSIS: Incarcerated umbilical hernia. PROCEDURE PERFORMED: Robotic-assisted laparoscopic repair of an incarcerated umbilical hernia with mesh. The mesh utilized was a 9 cm round Parietex patch. This is product code [id number] and lot number [id number]. SURGEON: Dr. Be Arora RETAIL WAREHOUSE SUPERVISOR: ANESTHESIA: General. INDICATIONS FOR PROCEDURE: The patient is a 59-year-old man who has had an umbilical hernia. This has become slightly larger in size over time and does not reduce at this point. He is now for repair of his umbilical hernia. OPERATIVE PROCEDURE: The patient was brought to the operating room and placed on the table in a supine position. He was placed under general endotracheal anesthesia. The patient's abdomen was prepped and draped in a sterile fashion. 0.25% Marcaine was infiltrated at the trocar sites as needed. A short transverse left upper quadrant skin incision was made. A Veress needle was inserted and after positive hanging drop test the abdomen was inflated with carbon dioxide gas. An 8 mm robotic port was placed over 5 mm scope and advanced through the abdominal wall without difficulty. Initial examination with the laparoscope showed some omentum adherent up into the umbilical hernia. The liver appeared normal. Visualized portions of the small and large bowel appeared normal. Two additional 8 mm ports were then placed. One was placed in the left midabdomen laterally at about the level of the umbilicus and a third was placed in the left lower quadrant. The patient was tilted to a slight Trendelenburg position to level the abdomen. The patient cart of the Rylie XI robot was brought into position and the endoscope port was docked. Targeting took place and the additional ports were then docked. A force bipolar and cauterizing scissors were inserted through the two working ports. I then moved to the control console to proceed with the operation. Initially, the omentum at the umbilicus was freed by retracting this into the abdomen and lysing some adhesions up into the hernia sac. Once hemostasis was ensured, I proceeded to create a peritoneal flap on the anterior abdominal wall. This was begun approximately 4-5 cm to the left of the midline. The peritoneum was incised longitudinally and a flap was developed working from the patient's left to the right. The peritoneum of the hernia sac was reduced into the abdomen as part of the flap. The dissection was carried across the midline an additional 4-5 cm to create an adequate place for mesh placement. The fascial defect appeared to be approximately to 2 to 2-1/2 cm in diameter. A #1-0 Stratafix suture was then used to close the fascial defect of the umbilical hernia transversely. A 9 cm Parietex patch as noted in the operative report was then inserted into the abdomen and placed into the preperitoneal space. This was then sutured in place with #2-0 V-Loc suture. Initially, this was carried across the mesh, suturing this in place and then a circumferential suture at the edge of the mesh was placed. This nicely fixed the patch in place over the defect with a broad overlap on all sides. The peritoneal flap was then closed with a running suture of #2-0 (dictation cut off). Final inspection revealed excellent hemostasis with the mesh completely covered by the peritoneal flap. The robotic instruments were undocked. The abdomen was deflated and the ports were removed. The incisions were closed with buried sutures of #4-0 Vicryl and Steri-Strips. Some additional 0.25% Marcaine was infiltrated at each of the trocar sites. Light dressings were applied. The patient tolerated the procedure well without apparent complication. He was awakened in the operating room, extubated and transported to the recovery room in stable condition.
== END 2019-07-05 12:24 | disposition home or self-care (01) ==
LOC: M SDC 06:12
PROVIDERS: ATTEND Surgery
DX: K42.0 Umbilical hernia with obstruction, without gangrene (principal); E66.9 Obesity, unspecified; Z68.38 Body mass index [BMI] 38.0-38.9, adult; Z86.73 Personal history of transient ischemic attack (TIA), and cerebral infarction without residual deficits; Z95.1 Presence of aortocoronary bypass graft; I48.91 Unspecified atrial fibrillation; R94.31 Abnormal electrocardiogram [ECG] [EKG]; I25.10 Atherosclerotic heart disease of native coronary artery without angina pectoris; I11.9 Hypertensive heart disease without heart failure; E78.00 Pure hypercholesterolemia, unspecified; I73.9 Peripheral vascular disease, unspecified; Z85.850 Personal history of malignant neoplasm of thyroid; Z90.89 Acquired absence of other organs; E89.0 Postprocedural hypothyroidism; G47.30 Sleep apnea, unspecified; Z92.3 Personal history of irradiation; Z79.899 Other long term (current) drug therapy; Z79.82 Long term (current) use of aspirin; Z79.01 Long term (current) use of anticoagulants; Z88.0 Allergy status to penicillin; Z88.8 Allergy status to other drugs, medicaments and biological substances; Z88.3 Allergy status to other anti-infective agents
CPT/HCPCS: 49653; C1781; J0131; J1100; J1885; J2250; J2405; J2765; J3010

== ENCOUNTER → 2021-02-25 | Outpatient (CLI) | payer BC, OTHER ==
[~2021-02-25] MED LIST changes: +AMLO1TAB24 PO; -AMLO5TAB6 PO; -ASPI81TA85 PO; +ASPI81TA86 PO; -LR 1,000 ML IV ONE
--- NOTE | 2021-02-25 11:01 | REP ---
INDICATION: COUGH, UNSPECIFIED. COMPARISON: 01/07/2017 the latest prior FINDINGS: The superior mediastinal structures are midline. The cardiac silhouette is unremarkable in size, shape, and position. The diaphragmatic surfaces of the lungs are regular, and the costophrenic angles are clear. The pulmonary laguerre are clear. The imaged osseous structures are intact. Note is again made of previous median sternotomy. The loop recorder has been removed. IMPRESSION: There is no acute cardiopulmonary disease. <Electronically signed by Filiberto Jacome > 02/25/21 1052
== END ==
LOC: M PLAIMG 10:11
PROVIDERS: ATTEND Internal Medicine Pulmonary Disease
DX: R05.9 Cough, unspecified (principal)

== ENCOUNTER → 2021-03-17 | Outpatient (CLI) | payer BC, OTHER ==
[~2021-03-17] MED LIST changes: +METHACHOLINE KIT (J7674) INH ONE
--- NOTE | 2021-03-17 10:45 | PFTRPT ---
Site: [facility], [address] [place], [place], [address] ID: [id number] Name: SHYLA SOLIZ Visit Date: 03/17/2021 Second ID: [id number] Referring Doctor: Parviz Hawk D.O. Reviewing Doctor: Donta Zimmer MD 8Th Grade Mathematics Teacher: Gene ALMARAZ RRT Age: 61 : 1960 Sex: Male Race: Height: 70.00 Inches Weight: 245.00 Lbs BSA: 2.28 Order IDs: [id number] Requested Test(s): <RESP-PFT.METH CHAL> Diagnosis: R05.9 of albuterol for post bronchodilator. Review Status: Not Reviewed Pre-Bronch Post-Bronch Pred Actual %Pred Actual %Chng SPIROMETRY FVC (L) 4.67 3.86 82 3.70 -4 FEV1 (L) 3.51 3.16 90 3.02 -4 FEV1/FVC (%) 75 82 109 82 FEF 25% (L/sec) 7.99 9.25 115 9.14 -1 FEF 50% (L/sec) 4.92 4.75 96 4.38 -7 FEF 75% (L/sec) 1.50 1.25 83 0.74 -40 FEF 25-75% (L/sec) 2.82 3.33 118 2.78 -16 FEF Max (L/sec) 8.99 9.35 103 9.51 1 FIVC (L) 3.66 3.46 -5 FIF 50% (L/sec) 4.64 4.47 96 5.61 25 FIF Max (L/sec) 4.59 5.60 22 Expiratory Time (sec) 6.40 7.96 24 Back Extrap Vol (L) 0.13 0.12 -6 Time To FEFmax (sec) 0.085 0.077 -10
== END ==
LOC: M CARPUL 09:52
PROVIDERS: ATTEND Internal Medicine Pulmonary Disease
DX: R05.9 Cough, unspecified (principal)
CPT/HCPCS: 94070; J7674

== ENCOUNTER → 2022-03-22 | Outpatient (CLI) | payer BC, OTHER ==
[~2022-03-22] MED LIST changes: +LOSA25TA13 PO; -LOSA25TA14 PO; -METHACHOLINE KIT (J7674) INH ONE
== END ==
LOC: M RAD 09:15
PROVIDERS: ATTEND Internal Medicine
DX: R74.01 Elevation of levels of liver transaminase levels (principal); K76.0 Fatty (change of) liver, not elsewhere classified

== ENCOUNTER → 2022-08-06 | Outpatient (CLI) | payer BC, OTHER | LOC: M PLARAD 08:49 | PROVIDERS: ATTEND Internal Medicine Gastroenterology | DX: K74.60 Unspecified cirrhosis of liver (principal); R79.89 Other specified abnormal findings of blood chemistry; R13.10 Dysphagia, unspecified; K76.0 Fatty (change of) liver, not elsewhere classified; K76.89 Other specified diseases of liver; N28.1 Cyst of kidney, acquired ==

== ENCOUNTER → 2022-09-28 | Outpatient (CLI) | payer BC, OTHER ==
[2022-09-28 19:15] LABS: HEMATOCRIT 47.1 % (42.0-52.0); HEMOGLOBIN 15.7 g/dl (13.5-17.5); MEAN CORPUSCULAR HEMOGLOBIN 33.3 pg (27.0-33.0); MEAN CORPUSCULAR HGB CONC 33.3 g/dl (32.0-36.5); PLATELET COUNT, AUTOMATED 182 10^3/uL (150-450); RED BLOOD COUNT 4.71 10^6/uL (4.30-6.10); WHITE BLOOD COUNT 9.4 10^3/uL (4.0-10.0)
[2022-09-28 19:38] LABS: THYROID STIMULATING HORMONE 17.498 uIU/ML (0.55-4.78)
[2022-09-28 19:40] LABS: ALKALINE PHOSPHATASE 96 U/L (46-116); ALT/SGPT 40 U/L (7.0-40); AST/SGOT 49 U/L (<34); BILIRUBIN,TOTAL 2.5 MG/DL (0.3-1.2); BLOOD UREA NITROGEN 18 MG/DL (9-23); CALCIUM LEVEL 8.2 MG/DL (8.3-10.6); CARBON DIOXIDE LEVEL 29 MMOL/L (20-31); CHLORIDE LEVEL 97 MMOL/L (98-107); CHOLESTEROL LEVEL 153 MG/DL (<200); CHOLESTEROL RISK RATIO 2.69 (<5); CREATININE FOR GFR 1.04 MG/DL (0.70-1.30); GLOMERULAR FILTRATION RATE > 60.0 (>49); GLUCOSE, FASTING 105 MG/DL (74-106); HDL CHOLESTEROL 56.8 MG/DL (>40); LDL CHOLESTEROL 81.4 MG/DL (<100); NON-HDL-C 96.2 MG/DL; POTASSIUM SERUM 4.2 MMOL/L (3.5-5.1); SODIUM LEVEL 138 MMOL/L (136-145); TOTAL PROTEIN 8.2 G/DL (5.7-8.2); TRIGLYCERIDES LEVEL 74 MG/DL (<150)
== END ==
LOC: M WUC 16:01
PROVIDERS: ATTEND Internal Medicine
DX: E78.5 Hyperlipidemia, unspecified (principal); R53.83 Other fatigue; E03.9 Hypothyroidism, unspecified; J17 Pneumonia in diseases classified elsewhere

== ENCOUNTER → 2022-10-18 | Outpatient (CLI) | payer BC, OTHER ==
[~2022-10-18] MED LIST changes: -K-TA10TA PO; +POTA-164 PO
== END ==
LOC: M PLAIMG 11:20
PROVIDERS: ATTEND Internal Medicine
DX: R05.9 Cough, unspecified (principal)

== ENCOUNTER 2022-11-07 19:36 | Emergency (ER) | payer BC, OTHER ==
[~2022-11-07] VITALS: Ht 172.7 cm; Wt 114.6 kg
[2022-11-07 20:43] LABS: BASO # 0.1 10^3/uL (0.0-0.2); BASO % 0.8 % (0.0-1.0); EOS % 0.5 % (0.0-3.0); HEMATOCRIT 43.2 % (42.0-52.0); HEMOGLOBIN 14.7 g/dl (13.5-17.5); LYMPH # 1.7 10^3/uL (1.5-5.0); LYMPH % 27.4 % (24.0-44.0); MEAN CORPUSCULAR HEMOGLOBIN 33.2 pg (27.0-33.0); MEAN CORPUSCULAR VOLUME 97.5 fl (80.0-96.0); MONO # 0.5 10^3/uL (0.0-0.8); MONO % 8.3 % (2.0-8.0); NEUTROPHILS # 3.8 10^3/uL (1.5-8.5); NEUTROPHILS % 62.8 % (36.0-66.0); PLATELET COUNT, AUTOMATED 150 10^3/uL (150-450); RED BLOOD COUNT 4.43 10^6/uL (4.30-6.10); WHITE BLOOD COUNT 6.1 10^3/uL (4.0-10.0)
[2022-11-07 20:59] LABS: INR 0.95; PARTIAL THROMBOPLASTIN TIME 25.8 SECONDS (24.8-34.2); PROTHROMBIN TIME 12.9 SECONDS (12.5-14.5)
[2022-11-07 21:08] LABS: ALBUMIN 3.7 G/DL (3.2-5.2); ALKALINE PHOSPHATASE 99 U/L (46-116); ALT/SGPT 51 U/L (7.0-40); AST/SGOT 91 U/L (<34); BILIRUBIN,TOTAL 0.9 MG/DL (0.3-1.2); BLOOD UREA NITROGEN 17 MG/DL (9-23); CALCIUM LEVEL 7.8 MG/DL (8.3-10.6); CARBON DIOXIDE LEVEL 26 MMOL/L (20-31); CHLORIDE LEVEL 104 MMOL/L (98-107); CREATININE FOR GFR 0.97 MG/DL (0.70-1.30); GLOMERULAR FILTRATION RATE > 60.0 (>49); GLUCOSE, FASTING 104 MG/DL (74-106); POTASSIUM SERUM 3.8 MMOL/L (3.5-5.1); SODIUM LEVEL 140 MMOL/L (136-145); TOTAL PROTEIN 6.9 G/DL (5.7-8.2)
[2022-11-07 21:10] LABS: THYROID STIMULATING HORMONE 25.776 uIU/ML (0.55-4.78)
[2022-11-07 21:15] VITALS: TEMP 98
[2022-11-07 21:58] LABS: CK-MB VALUE MASS 3.8 NG/ML (<3.6)
[2022-11-07 22:02] LABS: FREE T4 0.76 NG/DL (0.89-1.76)
[2022-11-07 22:04] LABS: CPK CREATINE PHOSPHOKINASE 698 U/L (46-171); MB/CK RELATIVE INDEX 0.54 (< OR =4)
[2022-11-07 23:15] VITALS: O2SAT 91
[2022-11-07 23:16] VITALS: BP 154/81
[2022-11-08] MEDS ORDERED: METO1TAB33 (13:03)
[2022-11-08] MEDS ORDERED: BAYE325T12 PO (13:03)
[2022-11-08] MEDS ORDERED: LOSA50TA28 (13:03)
[2022-11-08] MEDS ORDERED: HYDR50TA70 (13:03)
[2022-11-08] MEDS ORDERED: CARA1TAB6 PO (21:55)
[2022-11-08] MEDS ORDERED: ASPI-264 PO (21:55)
[2022-11-08] MEDS ORDERED: KETO2SHA8 TOP (21:55)
[2022-11-08] MEDS ORDERED: SYNT150T PO (21:55)
[2022-11-08] MEDS ORDERED: METO1TAB33 PO (21:55)
[2022-11-08] MEDS ORDERED: TIZA1TAB12 PO (21:55)
[2022-11-08] MEDS ORDERED: POTA-298 PO (21:55)
[2022-11-08] MEDS ORDERED: XALA0.007 OU (21:55)
[2022-11-08] MEDS ORDERED: VITA100T89 PO (21:55)
[2022-11-08] MEDS ORDERED: AMMO12CR7 TOP (21:55)
[2022-11-08] MEDS ORDERED: EPIP0.3I2 IM (21:55)
[2022-11-08] MEDS ORDERED: HYDR50TA30 PO (21:55)
[2022-11-08] MEDS ORDERED: LOSA50TA28 PO (21:55)
[2022-11-08] MEDS ORDERED: IPRA6SP (21:55)
[2022-11-08] MEDS ORDERED: ATOR1TAB19 PO (21:55)
== END 2022-11-07 23:46 | disposition left against medical advice (07) ==
LOC: M ED 19:36
DX: I48.3 Typical atrial flutter (principal); R53.83 Other fatigue; G47.33 Obstructive sleep apnea (adult) (pediatric); I10 Essential (primary) hypertension; G40.909 Epilepsy, unspecified, not intractable, without status epilepticus; E78.5 Hyperlipidemia, unspecified; E03.9 Hypothyroidism, unspecified; Z86.79 Personal history of other diseases of the circulatory system; Z88.0 Allergy status to penicillin; Z88.1 Allergy status to other antibiotic agents; Z88.6 Allergy status to analgesic agent; Z88.8 Allergy status to other drugs, medicaments and biological substances; Z79.82 Long term (current) use of aspirin; Z79.811 Long term (current) use of aromatase inhibitors; Z79.899 Other long term (current) drug therapy; Z53.9 Procedure and treatment not carried out, unspecified reason

== ENCOUNTER 2022-11-08 12:47 | Inpatient (IN) | payer BC, OTHER ==
[~2022-11-08] VITALS: Ht 172.7 cm; Wt 112.1 kg
[2022-11-08] MEDS ORDERED: HYDR50TA70 (13:03)
[2022-11-08] MEDS ORDERED: BAYE325T12 PO (13:03)
[2022-11-08] MEDS ORDERED: LOSA50TA28 (13:03)
[2022-11-08] MEDS ORDERED: METO1TAB33 (13:03)
[2022-11-08 13:11] LABS: BASO # 0.1 10^3/uL (0.0-0.2); BASO % 0.7 % (0.0-1.0); EOS % 0.3 % (0.0-3.0); HEMATOCRIT 45.2 % (42.0-52.0); HEMOGLOBIN 15.1 g/dl (13.5-17.5); LYMPH # 1.5 10^3/uL (1.5-5.0); LYMPH % 20.5 % (24.0-44.0); MEAN CORPUSCULAR HEMOGLOBIN 32.6 pg (27.0-33.0); MEAN CORPUSCULAR HGB CONC 33.4 g/dl (32.0-36.5); MEAN CORPUSCULAR VOLUME 97.6 fl (80.0-96.0); MONO # 0.4 10^3/uL (0.0-0.8); MONO % 5.8 % (2.0-8.0); NEUTROPHILS # 5.4 10^3/uL (1.5-8.5); NEUTROPHILS % 72.6 % (36.0-66.0); PLATELET COUNT, AUTOMATED 156 10^3/uL (150-450); RED BLOOD COUNT 4.63 10^6/uL (4.30-6.10); WHITE BLOOD COUNT 7.5 10^3/uL (4.0-10.0)
[2022-11-08] MEDS: METOPROLOL 5 MG/5 ML VIAL IV SCH ×3 (13:53→14:20)
[2022-11-08 13:56] LABS: ALBUMIN 3.8 G/DL (3.2-5.2); ALKALINE PHOSPHATASE 98 U/L (46-116); ALT/SGPT 55 U/L (7.0-40); AST/SGOT 117 U/L (<34); BILIRUBIN,DIRECT 0.4 MG/DL (<0.4); BILIRUBIN,TOTAL 1.7 MG/DL (0.3-1.2); BLOOD UREA NITROGEN 15 MG/DL (9-23); CALCIUM LEVEL 8.6 MG/DL (8.3-10.6); CARBON DIOXIDE LEVEL 25 MMOL/L (20-31); CHLORIDE LEVEL 103 MMOL/L (98-107); CK-MB VALUE MASS 3.5 NG/ML (<3.6); CPK CREATINE PHOSPHOKINASE 691 U/L (46-171); CREATININE FOR GFR 0.94 MG/DL (0.70-1.30); GLOMERULAR FILTRATION RATE > 60.0 (>49); GLUCOSE, FASTING 79 MG/DL (74-106); MAGNESIUM LEVEL 1.2 MG/DL (1.8-2.4); POTASSIUM SERUM 4.6 MMOL/L (3.5-5.1); SODIUM LEVEL 137 MMOL/L (136-145); THYROID STIMULATING HORMONE 16.823 uIU/ML (0.55-4.78); TOTAL PROTEIN 7.2 G/DL (5.7-8.2)
[2022-11-08] MEDS ORDERED: METOPROLOL TART 25 MG TABLET PO ONE (14:45)
[2022-11-08] MEDS: MAG SULF 1GM/100ML (MAG RUN) 1 GM in IV 1 EA IV SCH ×2 (15:00→15:57)
[2022-11-08] MEDS ORDERED: NS 1,000 ML IV ONE (15:05)
[2022-11-08 15:09] LABS: RSV AMPLIFICATION NEGATIVE (NEGATIVE)
[2022-11-08 15:10] LABS: CK-MB VALUE MASS 2.8 NG/ML (<3.6); MB/CK RELATIVE INDEX 0.41 (< OR =4)
[2022-11-08 16:25] LABS: FREE T4 0.88 NG/DL (0.89-1.76)
[2022-11-08] MEDS ORDERED: MED REC IN PROGRESS XX SCH (17:50)
[2022-11-08] MEDS ORDERED: ACETAMINOPHEN TAB 650MG DOSE (2X325MG) PO ONE (18:45)
[2022-11-08] MEDS ORDERED: METOPROLOL 5 MG/5 ML VIAL IV STA (19:34)
[2022-11-08] MEDS ORDERED: tiZANidine 4 MG TAB PO PRN (19:35)
[2022-11-08] MEDS: LR 1,000 ML IV SCH (20:11)
[2022-11-08 20:22] LABS: TOTAL 25(OH) VITAMIN D 60.6 NG/ML (20.0-100.0); VITAMIN B12 LEVEL 339 PG/ML (211-911)
[2022-11-08 20:38] LABS: HEPATITIS B SURFACE ANTIGEN NEGATIVE (NEGATIVE)
[2022-11-08 21:00] LABS: HEPATITIS B CORE ANTIBODY IGM NEGATIVE (NEGATIVE); HEPATITIS C VIRUS ABY INDEX 0.09 INDEX (<0.8)
[2022-11-08] MEDS ORDERED: SUCRALFATE 1 GM TAB PO SCH (21:00)
[2022-11-08] MEDS ORDERED: XALA0.007 OU (21:55)
[2022-11-08] MEDS ORDERED: HOME MED LIST COMPLETE! XX SCH (21:55)
[2022-11-08] MEDS ORDERED: HYDR50TA30 PO (21:55)
[2022-11-08] MEDS ORDERED: METO1TAB33 PO (21:55)
[2022-11-08] MEDS ORDERED: AMMO12CR7 TOP (21:55)
[2022-11-08] MEDS ORDERED: POTA-298 PO (21:55)
[2022-11-08] MEDS ORDERED: CARA1TAB6 PO (21:55)
[2022-11-08] MEDS ORDERED: VITA100T89 PO (21:55)
[2022-11-08] MEDS ORDERED: LOSA50TA28 PO (21:55)
[2022-11-08] MEDS ORDERED: SYNT150T PO (21:55)
[2022-11-08] MEDS ORDERED: ASPI-264 PO (21:55)
[2022-11-08] MEDS ORDERED: EPIP0.3I2 IM (21:55)
[2022-11-08] MEDS ORDERED: IPRA6SP (21:55)
[2022-11-08] MEDS ORDERED: TIZA1TAB12 PO (21:55)
[2022-11-08] MEDS ORDERED: KETO2SHA8 TOP (21:55)
[2022-11-08] MEDS ORDERED: ATOR1TAB19 PO (21:55)
[2022-11-08] MEDS ORDERED: ACETAMINOPHEN TAB 650MG DOSE (2X325MG) PO PRN (22:00)
[2022-11-08] MEDS ORDERED: hydrOXYzine 50 MG TAB PO ONE (22:00)
[2022-11-08 22:24] VITALS: BP 184/110; TEMP 97.7; O2SAT 95
[2022-11-08] MEDS ORDERED: LORazepam 2 MG TAB PO PRN (23:00)
[2022-11-08] MEDS: THIAMINE 100 MG TAB PO SCH (23:20)
[2022-11-08] MEDS: lamoTRIgine 100MG TAB PO SCH (23:20)
[2022-11-08] MEDS: POTASSIUM CHLORIDE 10MEQ SR TABLET PO SCH (23:20)
[2022-11-08 23:52] VITALS: BP 180/98; TEMP 98; O2SAT 93
[2022-11-09] VITALS (23 sets, daily range): BP systolic 132–178; BP diastolic 78–106; TEMP 97.8–98.9; O2SAT 94–98
[2022-11-09] MEDS: METOPROLOL TART 50 MG TAB PO SCH ×2 (00:43→05:56)
[2022-11-09] MEDS: LR 1,000 ML IV SCH (03:52)
[2022-11-09] MEDS ORDERED: hydrALAZINE 20MG/ML 1ML VIAL IV ONE (04:00)
[2022-11-09] MEDS: LEVOTHYROXINE 100MCG TABLET (0.1MG) PO SCH (05:56)
[2022-11-09] MEDS: LEVOTHYROXINE 150MCG TABLET (0.15MG) PO SCH (05:56)
[2022-11-09] MEDS ORDERED: hydrOXYzine 50 MG TAB PO PRN (06:00)
[2022-11-09 06:08] LABS: HEMATOCRIT 45.9 % (42.0-52.0); HEMOGLOBIN 15.7 g/dl (13.5-17.5); MEAN CORPUSCULAR HEMOGLOBIN 32.8 pg (27.0-33.0); MEAN CORPUSCULAR HGB CONC 34.2 g/dl (32.0-36.5); MEAN CORPUSCULAR VOLUME 95.8 fl (80.0-96.0); PLATELET COUNT, AUTOMATED 131 10^3/uL (150-450); RED BLOOD COUNT 4.79 10^6/uL (4.30-6.10); WHITE BLOOD COUNT 8.6 10^3/uL (4.0-10.0)
[2022-11-09 06:38] LABS: BLOOD UREA NITROGEN 13 MG/DL (9-23); CALCIUM LEVEL 7.9 MG/DL (8.3-10.6); CARBON DIOXIDE LEVEL 22 MMOL/L (20-31); CHLORIDE LEVEL 98 MMOL/L (98-107); CREATININE FOR GFR 0.73 MG/DL (0.70-1.30); GLOMERULAR FILTRATION RATE > 60.0 (>49); GLUCOSE, FASTING 79 MG/DL (74-106); MAGNESIUM LEVEL 1.3 MG/DL (1.8-2.4); SODIUM LEVEL 136 MMOL/L (136-145); THYROID STIMULATING HORMONE 21.225 uIU/ML (0.55-4.78); THYROXINE (T4) 4.9 UG/DL (4.5-10.9)
[2022-11-09 06:39] LABS: FREE THYROXINE INDEX 1.8 % (1.4-3.8); T UPTAKE 36.2 % (22.5-37.0)
[2022-11-09] MEDS: SUCRALFATE SUSP 1GM/10ML UD PO SCH ×4 (07:35→20:29)
[2022-11-09] MEDS ORDERED: MAG SULF 1GM/100ML (MAG RUN) 1 GM in IV 1 EA IV ONE ×2 (08:00→21:35)
[2022-11-09] MEDS ORDERED: METOPROLOL SUCC (TopROL XL) 100MG *XL* TAB PO SCH (09:00)
[2022-11-09] MEDS: ASPIRIN 325 MG TAB PO SCH (09:36)
[2022-11-09] MEDS: LOSARTAN 50MG TABLET PO SCH (09:36)
[2022-11-09] MEDS: MAGNESIUM OXIDE 400MG TAB (MAG-OX) PO SCH ×2 (09:36→20:29)
[2022-11-09] MEDS: FOLIC ACID 1MG TAB PO SCH (09:36)
[2022-11-09] MEDS: SPIRONOLACTONE 25 MG TAB PO SCH (09:36)
[2022-11-09] MEDS: ATORVASTATIN 10 MG TAB PO SCH (09:36)
[2022-11-09] MEDS: lamoTRIgine 100MG TAB PO SCH ×2 (09:36→20:29)
[2022-11-09] MEDS: THIAMINE 100 MG TAB PO SCH ×2 (09:37→20:30)
[2022-11-09] MEDS: POTASSIUM CHLORIDE 10MEQ SR TABLET PO SCH ×2 (09:37→20:30)
[2022-11-09] MEDS: MULTIVITAMINS/MINERALS THERAP 1 TAB PO SCH (09:37)
[2022-11-09] MEDS: ENOXAPARIN 40MG/0.4ML SYRINGE (J1650 PER 10MG) SC SCH (09:37)
[2022-11-09] MEDS ORDERED: METOPROLOL 5 MG/5 ML VIAL IV STA (13:25)
[2022-11-10] VITALS (9 sets, daily range): BP systolic 106–151; BP diastolic 62–78; TEMP 97.2–98; O2SAT 93–96
[2022-11-10] MEDS: LEVOTHYROXINE 100MCG TABLET (0.1MG) PO SCH (05:39)
[2022-11-10] MEDS: LEVOTHYROXINE 150MCG TABLET (0.15MG) PO SCH (05:39)
[2022-11-10 05:55] LABS: HEMOGLOBIN 14.8 g/dl (13.5-17.5); MEAN CORPUSCULAR HGB CONC 34.4 g/dl (32.0-36.5); PLATELET COUNT, AUTOMATED 117 10^3/uL (150-450); RED BLOOD COUNT 4.48 10^6/uL (4.30-6.10); WHITE BLOOD COUNT 5.6 10^3/uL (4.0-10.0)
[2022-11-10 06:05] LABS: PROTHROMBIN TIME 13.4 SECONDS (12.5-14.5)
[2022-11-10 06:06] LABS: PARTIAL THROMBOPLASTIN TIME 26.2 SECONDS (24.8-34.2)
[2022-11-10 06:28] LABS: ALBUMIN 3.4 G/DL (3.2-5.2); ALKALINE PHOSPHATASE 88 U/L (46-116); ALT/SGPT 35 U/L (7.0-40); AST/SGOT 56 U/L (<34); BILIRUBIN,TOTAL 2.9 MG/DL (0.3-1.2); BLOOD UREA NITROGEN 15 MG/DL (9-23); CALCIUM LEVEL 7.9 MG/DL (8.3-10.6); CARBON DIOXIDE LEVEL 26 MMOL/L (20-31); CHLORIDE LEVEL 103 MMOL/L (98-107); CREATININE FOR GFR 0.91 MG/DL (0.70-1.30); GLOMERULAR FILTRATION RATE > 60.0 (>49); GLUCOSE, FASTING 98 MG/DL (74-106); MAGNESIUM LEVEL 1.7 MG/DL (1.8-2.4); POTASSIUM SERUM 3.8 MMOL/L (3.5-5.1); SODIUM LEVEL 136 MMOL/L (136-145); TOTAL PROTEIN 6.5 G/DL (5.7-8.2)
[2022-11-10] MEDS ORDERED: MAG SULF 1GM/100ML (MAG RUN) 1 GM in IV 1 EA IV ONE (08:00)
[2022-11-10] MEDS ORDERED: METOPROLOL SUCC (TopROL XL) 50MG **XL** TAB PO SCH (09:00)
[2022-11-10] MEDS ORDERED: MAGNESIUM OXIDE 400MG TAB (MAG-OX) PO SCH (09:00)
[2022-11-10] MEDS: SPIRONOLACTONE 25 MG TAB PO SCH (09:06)
[2022-11-10] MEDS: ATORVASTATIN 10 MG TAB PO SCH (09:07)
[2022-11-10] MEDS: LOSARTAN 50MG TABLET PO SCH (09:07)
[2022-11-10] MEDS: lamoTRIgine 100MG TAB PO SCH (09:07)
[2022-11-10] MEDS: ASPIRIN 325 MG TAB PO SCH (09:07)
[2022-11-10] MEDS: FOLIC ACID 1MG TAB PO SCH (09:07)
[2022-11-10] MEDS: POTASSIUM CHLORIDE 10MEQ SR TABLET PO SCH (09:08)
[2022-11-10] MEDS: THIAMINE 100 MG TAB PO SCH (09:08)
[2022-11-10] MEDS: MULTIVITAMINS/MINERALS THERAP 1 TAB PO SCH (09:08)
[2022-11-10] MEDS: ENOXAPARIN 40MG/0.4ML SYRINGE (J1650 PER 10MG) SC SCH (09:09)
[2022-11-10] MEDS ORDERED: SUCRALFATE SUSP 1GM/10ML UD PO SCH (10:00)
[2022-11-10] MEDS ORDERED: CARA1TAB6 PO (10:59)
[2022-11-10] MEDS ORDERED: METO1TAB33 PO (10:59)
[2022-11-10] MEDS ORDERED: MAGN400T2 PO (10:59)
[2022-11-10] MEDS ORDERED: VITMTA PO (10:59)
[2022-11-11 11:08] LABS: THRYOGLOBULIN ANTIBODIES (ATA) < 1.0 IU/mL (0.0-0.9); THYROGLOBULIN QUANTITATIVE < 0.1 ng/mL (1.4-29.2)
== END 2022-11-10 12:20 | disposition home or self-care (01) | DRG 201 ==
LOC: M ED 12:47 → M ED INP 19:34 → M PCU 22:15
PROVIDERS: ADMIT Family Medicine; ATTEND Internal Medicine
DX: I48.91 Unspecified atrial fibrillation (principal); E83.42 Hypomagnesemia; K76.0 Fatty (change of) liver, not elsewhere classified; G40.909 Epilepsy, unspecified, not intractable, without status epilepticus; F10.10 Alcohol abuse, uncomplicated; Z85.850 Personal history of malignant neoplasm of thyroid; Z86.73 Personal history of transient ischemic attack (TIA), and cerebral infarction without residual deficits; I10 Essential (primary) hypertension; G47.33 Obstructive sleep apnea (adult) (pediatric); F41.9 Anxiety disorder, unspecified; F32.A Depression, unspecified; I16.0 Hypertensive urgency; E89.0 Postprocedural hypothyroidism; R53.83 Other fatigue; K27.9 Peptic ulcer, site unspecified, unspecified as acute or chronic, without hemorrhage or perforation; Z88.0 Allergy status to penicillin; Z88.6 Allergy status to analgesic agent; Z88.8 Allergy status to other drugs, medicaments and biological substances; Z79.82 Long term (current) use of aspirin; Z79.899 Other long term (current) drug therapy

== ENCOUNTER 2022-11-30 10:17 | Emergency (ER) | payer BC, OTHER ==
[~2022-11-30] VITALS: Ht 172.7 cm; Wt 113.5 kg
[~2022-11-30 10:17] MED LIST changes: +AMMO12CR7 TOP; +ASPI-264 PO; +ATOR1TAB19 PO; +BAYE325T12 PO; +CARA1TAB6 PO; +EPIP0.3I2 IM; +HYDR50TA30 PO; +HYDR50TA70; +IPRA6SP; +KETO2SHA8 TOP; +LOSA50TA28; +LOSA50TA28 PO; +MAGN400T2 PO; +METO1TAB33; +METO1TAB33 PO; +POTA-298 PO; +SYNT150T PO; +TIZA1TAB12 PO; +VITA100T89 PO; +VITMTA PO; +XALA0.007 OU
[2022-11-30 11:10] LABS: BASO % 0.3 % (0.0-1.0); EOS # 0.1 10^3/uL (0.0-0.5); EOS % 0.7 % (0.0-3.0); HEMATOCRIT 44.8 % (42.0-52.0); LYMPH # 1.1 10^3/uL (1.5-5.0); LYMPH % 15.2 % (24.0-44.0); MEAN CORPUSCULAR HEMOGLOBIN 33.5 pg (27.0-33.0); MEAN CORPUSCULAR HGB CONC 33.5 g/dl (32.0-36.5); MONO # 0.6 10^3/uL (0.0-0.8); NEUTROPHILS # 5.3 10^3/uL (1.5-8.5); NEUTROPHILS % 75.5 % (36.0-66.0); PLATELET COUNT, AUTOMATED 162 10^3/uL (150-450); RED BLOOD COUNT 4.48 10^6/uL (4.30-6.10)
[2022-11-30 11:40] LABS: LIPASE 39 U/L (12-53)
[2022-11-30 11:42] LABS: ALBUMIN 4.1 G/DL (3.2-5.2); ALKALINE PHOSPHATASE 93 U/L (46-116); ALT/SGPT 42 U/L (7.0-40); AST/SGOT 69 U/L (<34); BILIRUBIN,DIRECT 0.6 MG/DL (<0.4); BILIRUBIN,TOTAL 2.1 MG/DL (0.3-1.2); BLOOD UREA NITROGEN 18 MG/DL (9-23); CALCIUM LEVEL 8.7 MG/DL (8.3-10.6); CARBON DIOXIDE LEVEL 22 MMOL/L (20-31); CHLORIDE LEVEL 102 MMOL/L (98-107); CREATININE FOR GFR 0.76 MG/DL (0.70-1.30); GLOMERULAR FILTRATION RATE > 60.0 (>49); GLUCOSE, FASTING 90 MG/DL (74-106); POTASSIUM SERUM 4.3 MMOL/L (3.5-5.1); SODIUM LEVEL 138 MMOL/L (136-145); TOTAL PROTEIN 7.7 G/DL (5.7-8.2)
[2022-11-30 11:46] LABS: FREE T4 1.73 NG/DL (0.89-1.76); THYROID STIMULATING HORMONE 1.257 uIU/ML (0.55-4.78)
[2022-11-30 12:11] LABS: MAGNESIUM LEVEL 1.2 MG/DL (1.8-2.4)
[2022-11-30] MEDS ORDERED: MAG SULF 1GM/100ML (MAG RUN) 1 GM in IV 1 EA IV ONE ×4 (12:20)
[2022-11-30 14:58] VITALS: TEMP 98.6; O2SAT 97
[2022-11-30 15:08] VITALS: BP 160/98
[2022-11-30] MEDS ORDERED: LOSA100T5 PO (15:10)
== END 2022-11-30 15:30 | disposition home or self-care (01) ==
LOC: M ED 10:17
DX: E83.42 Hypomagnesemia (principal); I48.91 Unspecified atrial fibrillation; I10 Essential (primary) hypertension; E78.5 Hyperlipidemia, unspecified; E03.9 Hypothyroidism, unspecified; Z86.79 Personal history of other diseases of the circulatory system; Z79.82 Long term (current) use of aspirin; Z79.02 Long term (current) use of antithrombotics/antiplatelets; Z79.810 Long term (current) use of selective estrogen receptor modulators (SERMs); Z79.899 Other long term (current) drug therapy; Z88.0 Allergy status to penicillin; Z88.5 Allergy status to narcotic agent; Z88.6 Allergy status to analgesic agent
CPT/HCPCS: 80048; 80076; 83690; 83735; 83880; 84439; 84443; 85025; 93005; 96374; 99284; J3475

== ENCOUNTER 2023-02-28 08:04 | Day surgery (SDC) | payer BC, OTHER ==
[~2023-02-28] VITALS: Ht 172.7 cm; Wt 111.1 kg
[~2023-02-28 08:04] MED LIST changes: +LOSA100T5 PO; +MAGN400T33 PO; +NS 1,000 ML IV ONE; +ONDA4TAB6 PO; +SOTA80TA2 PO
[2023-02-28] MEDS ORDERED: ROSU5TAB5 PO (08:45)
[2023-02-28] MEDS ORDERED: LOSA100T46 PO (08:45)
[2023-02-28] MEDS ORDERED: fentaNYL 100 MCG/2 ML INJECTION As Ordered ONE (09:45)
[2023-02-28] MEDS ORDERED: propofoL 200 MG/20 ML VIAL As Ordered ONE ×2 (09:49→10:11)
[2023-02-28] MEDS ORDERED: LIDOCAINE 2% 100MG/5ML SDV (FOR ANES.) As Ordered ONE (09:49)
[2023-02-28 10:57] VITALS: BP 115/63; TEMP 98; O2SAT 93
== END 2023-02-28 10:56 | disposition home or self-care (01) ==
LOC: M OPP 08:04
PROVIDERS: ATTEND Internal Medicine Gastroenterology
DX: Z12.11 Encounter for screening for malignant neoplasm of colon (principal); Z80.0 Family history of malignant neoplasm of digestive organs; D12.2 Benign neoplasm of ascending colon; K64.0 First degree hemorrhoids; K22.70 Barrett's esophagus without dysplasia; K31.89 Other diseases of stomach and duodenum; R12 Heartburn; Z99.89 Dependence on other enabling machines and devices; G47.30 Sleep apnea, unspecified; I48.91 Unspecified atrial fibrillation; I25.10 Atherosclerotic heart disease of native coronary artery without angina pectoris; Z86.73 Personal history of transient ischemic attack (TIA), and cerebral infarction without residual deficits
CPT/HCPCS: 43239; 45385; 88305; J3010

== ENCOUNTER → 2023-03-01 | Outpatient (REF) | payer BC, OTHER ==
[~2023-03-01] MED LIST changes: +LOSA100T46 PO; -NS 1,000 ML IV ONE; +ROSU5TAB5 PO
== END ==
LOC: M LAB REF 17:05
PROVIDERS: ATTEND Internal Medicine
DX: D64.9 Anemia, unspecified (principal); Z79.899 Other long term (current) drug therapy

== ENCOUNTER 2023-05-02 18:45 | Inpatient (IN) | payer BC, MEDICARE, OTHER ==
[~2023-05-02] VITALS: Ht 172.7 cm; Wt 115.3 kg
[2023-05-02] MEDS: LATANOPROST 0.005% OPHTH SOLN 2.5 ML OU SCH (06:00)
[2023-05-02] MEDS ORDERED: FURO20TA2 PO ×2 (19:45→21:57)
[2023-05-02] MEDS ORDERED: B-1100TA2 PO (19:47)
[2023-05-02 19:53] LABS: BASO % 0.5 % (0.0-1.0); EOS # 0.2 10^3/uL (0.0-0.5); EOS % 2.4 % (0.0-3.0); HEMATOCRIT 40.1 % (42.0-52.0); HEMOGLOBIN 13.4 g/dl (13.5-17.5); LYMPH # 1.6 10^3/uL (1.5-5.0); LYMPH % 24.1 % (24.0-44.0); MEAN CORPUSCULAR HEMOGLOBIN 34.7 pg (27.0-33.0); MEAN CORPUSCULAR HGB CONC 33.4 g/dl (32.0-36.5); MEAN CORPUSCULAR VOLUME 103.9 fl (80.0-96.0); MONO # 0.5 10^3/uL (0.0-0.8); MONO % 8.2 % (2.0-8.0); NEUTROPHILS # 4.2 10^3/uL (1.5-8.5); NEUTROPHILS % 64.5 % (36.0-66.0); PLATELET COUNT, AUTOMATED 133 10^3/uL (150-450); RED BLOOD COUNT 3.86 10^6/uL (4.30-6.10); WHITE BLOOD COUNT 6.6 10^3/uL (4.0-10.0)
[2023-05-02 20:13] LABS: FREE T4 1.06 NG/DL (0.89-1.76)
[2023-05-02 20:17] LABS: RSV AMPLIFICATION NEGATIVE (NEGATIVE)
[2023-05-02 20:20] LABS: BLOOD UREA NITROGEN 22 MG/DL (9-23); CALCIUM LEVEL 5.9 MG/DL (8.3-10.6); CARBON DIOXIDE LEVEL 23 MMOL/L (20-31); CHLORIDE LEVEL 112 MMOL/L (98-107); CREATININE FOR GFR 1.07 MG/DL (0.70-1.30); ETHYL ALCOHOL (ETHANOL) 0.375 % (0.000-0.010); GLOMERULAR FILTRATION RATE > 60.0 (>49); GLUCOSE, FASTING 82 MG/DL (74-106); MAGNESIUM LEVEL 1.4 MG/DL (1.8-2.4); POTASSIUM SERUM 3.2 MMOL/L (3.5-5.1); SODIUM LEVEL 144 MMOL/L (136-145)
[2023-05-02] MEDS ORDERED: CALCIUM CHLORIDE 10% 1 GM in D5W 100 ML IV ONE (20:50)
[2023-05-02] MEDS ORDERED: CALCITRIOL 0.25 MCG CAP (S0169) PO STA (20:50)
[2023-05-02] MEDS ORDERED: MAG SULF 1GM/100ML (MAG RUN) 1 GM in IV 1 EA IV ONE (20:50)
[2023-05-02 21:06] LABS: TOTAL 25(OH) VITAMIN D 39.4 NG/ML (20.0-100.0)
[2023-05-02 21:29] LABS: PTH INTACT 17.2 PG/ML (18.5-88.0)
[2023-05-02] MEDS ORDERED: FLON1SPR NARES (21:57)
[2023-05-02] MEDS ORDERED: ROSU10TA6 PO (21:57)
[2023-05-02] MEDS ORDERED: ONDA4TAB6 PO (21:57)
[2023-05-02] MEDS ORDERED: CLOB0.057 TOP (21:57)
[2023-05-02] MEDS ORDERED: OMEP1CAP73 PO (21:57)
[2023-05-02] MEDS ORDERED: THIA100T7 PO (21:57)
[2023-05-02] MEDS ORDERED: HOME MED LIST COMPLETE! XX SCH (22:00)
[2023-05-02] MEDS ORDERED: FLUTICASONE PROP 0.05% NASAL SPRAY 16 GM (FLONASE) NARES PRN (22:30)
[2023-05-02] MEDS ORDERED: ONDANSETRON 4MG 2ML VIAL IV PRN (22:30)
[2023-05-03] VITALS (7 sets, daily range): BP systolic 110–182; BP diastolic 54–90; TEMP 97.4–98; O2SAT 96–98
[2023-05-03] MEDS ORDERED: NS 1,000 ML IV ONE (00:05)
[2023-05-03 01:26] LABS: BLOOD UREA NITROGEN 19 MG/DL (9-23); CALCIUM LEVEL 7.6 MG/DL (8.3-10.6); CARBON DIOXIDE LEVEL 25 MMOL/L (20-31); CHLORIDE LEVEL 109 MMOL/L (98-107); CREATININE FOR GFR 1.13 MG/DL (0.70-1.30); GLOMERULAR FILTRATION RATE > 60.0 (>49); GLUCOSE, FASTING 85 MG/DL (74-106); MAGNESIUM LEVEL 1.7 MG/DL (1.8-2.4); PHOSPHORUS LEVEL 3.8 MG/DL (2.4-5.1); POTASSIUM SERUM 3.9 MMOL/L (3.5-5.1); SODIUM LEVEL 143 MMOL/L (136-145)
[2023-05-03] MEDS: NORCO, ANEXSIA 5/325MG TABLET (HYDROcodone/ACETAMINOPHEN) PO PRN ×3 (01:53→18:37)
[2023-05-03] MEDS: MAG SULF 1GM/100ML (MAG RUN) 1 GM in IV 1 EA IV SCH ×2 (03:19→04:18)
[2023-05-03] MEDS: LEVOTHYROXINE 100MCG TABLET (0.1MG) PO SCH (06:12)
[2023-05-03] MEDS: LEVOTHYROXINE 150MCG TABLET (0.15MG) PO SCH (06:12)
[2023-05-03 08:06] LABS: BLOOD UREA NITROGEN 21 MG/DL (9-23); CALCIUM LEVEL 8.2 MG/DL (8.3-10.6); CARBON DIOXIDE LEVEL 25 MMOL/L (20-31); CHLORIDE LEVEL 107 MMOL/L (98-107); CREATININE FOR GFR 1.18 MG/DL (0.70-1.30); GLOMERULAR FILTRATION RATE > 60.0 (>49); GLUCOSE, FASTING 71 MG/DL (74-106); MAGNESIUM LEVEL 2.3 MG/DL (1.8-2.4); POTASSIUM SERUM 4.3 MMOL/L (3.5-5.1); SODIUM LEVEL 142 MMOL/L (136-145)
[2023-05-03] MEDS: ENOXAPARIN 40MG/0.4ML SYRINGE (J1650 PER 10MG) SC SCH (08:39)
[2023-05-03] MEDS: MULTIVITAMINS/MINERALS THERAP 1 TAB PO SCH (08:40)
[2023-05-03] MEDS: ASPIRIN 325 MG TAB PO SCH (08:40)
[2023-05-03] MEDS: FOLIC ACID 1MG TAB PO SCH (08:40)
[2023-05-03] MEDS: ROSUVASTATIN 10 MG TAB (CRESTOR) PO SCH (08:41)
[2023-05-03] MEDS: lamoTRIgine 100MG TAB PO SCH ×2 (08:41→20:16)
[2023-05-03] MEDS: CALCIUM/VITAMIN D 500 MG TAB PO SCH (08:41)
[2023-05-03] MEDS: OMEPRAZOLE 20MG CAP PO SCH (08:41)
[2023-05-03] MEDS: LOSARTAN 50MG TABLET PO SCH (08:42)
[2023-05-03] MEDS: THIAMINE 100 MG TAB PO SCH (13:20)
[2023-05-03] MEDS ORDERED: LORazepam 2 MG TAB PO PRN (13:35)
[2023-05-03] MEDS: **hydrALAZINE** 10 MG TAB PO PRN ×2 (13:54→22:10)
[2023-05-03] MEDS: FUROSEMIDE 20 MG TAB PO SCH (13:54)
[2023-05-03] MEDS: LATANOPROST 0.005% OPHTH SOLN 2.5 ML OU SCH (20:16)
[2023-05-03] MEDS: SOTALOL HCL 80 MG TAB PO SCH (20:16)
[2023-05-04] VITALS (10 sets, daily range): BP systolic 116–200; BP diastolic 59–96; TEMP 97–98.6; O2SAT 92–97
[2023-05-04] MEDS: NORCO, ANEXSIA 5/325MG TABLET (HYDROcodone/ACETAMINOPHEN) PO PRN ×2 (00:17→08:34)
[2023-05-04] MEDS ORDERED: hydrALAZINE 20MG/ML 1ML VIAL IV ONE ×2 (02:10→05:55)
[2023-05-04] MEDS: LEVOTHYROXINE 150MCG TABLET (0.15MG) PO SCH (05:36)
[2023-05-04] MEDS: LEVOTHYROXINE 100MCG TABLET (0.1MG) PO SCH (05:36)
[2023-05-04 06:29] LABS: BASO % 0.5 % (0.0-1.0); EOS # 0.1 10^3/uL (0.0-0.5); EOS % 1.1 % (0.0-3.0); HEMOGLOBIN 13.8 g/dl (13.5-17.5); LYMPH # 0.8 10^3/uL (1.5-5.0); LYMPH % 13.7 % (24.0-44.0); MEAN CORPUSCULAR HGB CONC 34.5 g/dl (32.0-36.5); MEAN CORPUSCULAR VOLUME 101.5 fl (80.0-96.0); MONO # 0.6 10^3/uL (0.0-0.8); MONO % 11.4 % (2.0-8.0); NEUTROPHILS # 4.1 10^3/uL (1.5-8.5); NEUTROPHILS % 73.1 % (36.0-66.0); PLATELET COUNT, AUTOMATED 117 10^3/uL (150-450); RED BLOOD COUNT 3.94 10^6/uL (4.30-6.10); WHITE BLOOD COUNT 5.6 10^3/uL (4.0-10.0)
[2023-05-04 06:56] LABS: BLOOD UREA NITROGEN 20 MG/DL (9-23); CALCIUM LEVEL 8.6 MG/DL (8.3-10.6); CARBON DIOXIDE LEVEL 27 MMOL/L (20-31); CHLORIDE LEVEL 102 MMOL/L (98-107); CREATININE FOR GFR 1.01 MG/DL (0.70-1.30); GLOMERULAR FILTRATION RATE > 60.0 (>49); GLUCOSE, FASTING 94 MG/DL (74-106); MAGNESIUM LEVEL 1.5 MG/DL (1.8-2.4); POTASSIUM SERUM 3.9 MMOL/L (3.5-5.1); SODIUM LEVEL 139 MMOL/L (136-145)
[2023-05-04] MEDS ORDERED: **hydrALAZINE** 50 MG TAB PO PRN (07:40)
[2023-05-04] MEDS: ENOXAPARIN 40MG/0.4ML SYRINGE (J1650 PER 10MG) SC SCH (08:31)
[2023-05-04] MEDS: MULTIVITAMINS/MINERALS THERAP 1 TAB PO SCH (08:32)
[2023-05-04] MEDS: lamoTRIgine 100MG TAB PO SCH ×2 (08:32→20:30)
[2023-05-04] MEDS: ROSUVASTATIN 10 MG TAB (CRESTOR) PO SCH (08:32)
[2023-05-04] MEDS: LOSARTAN 50MG TABLET PO SCH (08:32)
[2023-05-04] MEDS: ASPIRIN 325 MG TAB PO SCH (08:32)
[2023-05-04] MEDS: FOLIC ACID 1MG TAB PO SCH (08:32)
[2023-05-04] MEDS: CALCIUM/VITAMIN D 500 MG TAB PO SCH (08:32)
[2023-05-04] MEDS: FUROSEMIDE 20 MG TAB PO SCH (08:32)
[2023-05-04] MEDS: OMEPRAZOLE 20MG CAP PO SCH (08:32)
[2023-05-04] MEDS: MAG SULF 1GM/100ML (MAG RUN) 1 GM in IV 1 EA IV SCH ×3 (08:33→11:00)
[2023-05-04] MEDS ORDERED: LIDOCAINE 5% (LIDODERM) PATCH TD ONE (10:00)
[2023-05-04] MEDS ORDERED: LABETALOL 100MG/20ML VIAL IV PRN (13:05)
[2023-05-04] MEDS: THIAMINE 100 MG TAB PO SCH (14:28)
[2023-05-04] MEDS: **hydrALAZINE** 50 MG TAB PO SCH ×2 (16:47→21:00)
[2023-05-04] MEDS: SOTALOL HCL 80 MG TAB PO SCH (20:30)
[2023-05-04] MEDS: LATANOPROST 0.005% OPHTH SOLN 2.5 ML OU SCH (20:30)
[2023-05-04] MEDS ORDERED: RAMELTEON 8 MG TAB (ROZEREM) PO SCH (21:00)
[2023-05-05 04:32] VITALS: BP 151/85; TEMP 98.9; O2SAT 96
[2023-05-05] MEDS: LEVOTHYROXINE 100MCG TABLET (0.1MG) PO SCH (05:26)
[2023-05-05] MEDS: LEVOTHYROXINE 150MCG TABLET (0.15MG) PO SCH (05:26)
[2023-05-05 05:37] LABS: BASO % 0.4 % (0.0-1.0); EOS # 0.1 10^3/uL (0.0-0.5); HEMATOCRIT 39.2 % (42.0-52.0); HEMOGLOBIN 13.3 g/dl (13.5-17.5); LYMPH % 20.2 % (24.0-44.0); MEAN CORPUSCULAR HEMOGLOBIN 34.5 pg (27.0-33.0); MEAN CORPUSCULAR HGB CONC 33.9 g/dl (32.0-36.5); MEAN CORPUSCULAR VOLUME 101.8 fl (80.0-96.0); MONO # 0.6 10^3/uL (0.0-0.8); MONO % 12.4 % (2.0-8.0); NEUTROPHILS # 3.3 10^3/uL (1.5-8.5); NEUTROPHILS % 64.8 % (36.0-66.0); PLATELET COUNT, AUTOMATED 122 10^3/uL (150-450); RED BLOOD COUNT 3.85 10^6/uL (4.30-6.10)
[2023-05-05 06:10] LABS: BLOOD UREA NITROGEN 16 MG/DL (9-23); CALCIUM LEVEL 9.1 MG/DL (8.3-10.6); CARBON DIOXIDE LEVEL 28 MMOL/L (20-31); CHLORIDE LEVEL 100 MMOL/L (98-107); CREATININE FOR GFR 1.13 MG/DL (0.70-1.30); GLOMERULAR FILTRATION RATE > 60.0 (>49); GLUCOSE, FASTING 97 MG/DL (74-106); MAGNESIUM LEVEL 1.8 MG/DL (1.8-2.4); SODIUM LEVEL 135 MMOL/L (136-145)
[2023-05-05 08:00] VITALS: BP 125/70
[2023-05-05] MEDS: ASPIRIN 325 MG TAB PO SCH (08:50)
[2023-05-05] MEDS: MULTIVITAMINS/MINERALS THERAP 1 TAB PO SCH (08:50)
[2023-05-05] MEDS: FOLIC ACID 1MG TAB PO SCH (08:50)
[2023-05-05] MEDS: ENOXAPARIN 40MG/0.4ML SYRINGE (J1650 PER 10MG) SC SCH (08:50)
[2023-05-05] MEDS: ROSUVASTATIN 10 MG TAB (CRESTOR) PO SCH (08:50)
[2023-05-05] MEDS: CALCIUM/VITAMIN D 500 MG TAB PO SCH (08:50)
[2023-05-05] MEDS: FUROSEMIDE 20 MG TAB PO SCH (08:50)
[2023-05-05] MEDS: LOSARTAN 50MG TABLET PO SCH (08:51)
[2023-05-05] MEDS: lamoTRIgine 100MG TAB PO SCH (08:51)
[2023-05-05] MEDS: OMEPRAZOLE 20MG CAP PO SCH (08:51)
[2023-05-05 08:53] VITALS: BP 125/70; TEMP 98.4; O2SAT 98
[2023-05-05 09:00] VITALS: BP 125/70
[2023-05-05] MEDS: **hydrALAZINE** 50 MG TAB PO SCH (09:00)
[2023-05-05] MEDS ORDERED: FOLI1TAB11 PO (10:20)
[2023-05-05] MEDS ORDERED: HYDR-3910 PO (10:20)
[2023-05-05] MEDS ORDERED: AMLO1TAB25 PO (10:20)
[2023-05-05 11:02] VITALS: BP 148/77
[2023-05-05] MEDS ORDERED: HYDR-3713 PO (11:32)
== END 2023-05-05 12:15 | disposition home or self-care (01) | DRG 316 ==
LOC: M ED 18:45 → EDBD 18:45 → M ED INP 22:30 → M PCU 05-03 00:50
PROVIDERS: ADMIT Internal Medicine; ATTEND Internal Medicine
DX: I95.9 Hypotension, unspecified (principal); G40.909 Epilepsy, unspecified, not intractable, without status epilepticus; F10.229 Alcohol dependence with intoxication, unspecified; K21.9 Gastro-esophageal reflux disease without esophagitis; I10 Essential (primary) hypertension; I48.0 Paroxysmal atrial fibrillation; M54.2 Cervicalgia; M54.50 Low back pain, unspecified; E03.9 Hypothyroidism, unspecified; Z86.73 Personal history of transient ischemic attack (TIA), and cerebral infarction without residual deficits; M50.30 Other cervical disc degeneration, unspecified cervical region; Z79.899 Other long term (current) drug therapy; Z79.82 Long term (current) use of aspirin; Z88.0 Allergy status to penicillin; Z88.8 Allergy status to other drugs, medicaments and biological substances; Z88.6 Allergy status to analgesic agent; E83.51 Hypocalcemia; E83.42 Hypomagnesemia; E87.6 Hypokalemia; Z85.89 Personal history of malignant neoplasm of other organs and systems; Z87.891 Personal history of nicotine dependence; R55 Syncope and collapse; E78.00 Pure hypercholesterolemia, unspecified

== ENCOUNTER 2023-09-02 08:29 | Emergency (ER) | payer MEDICARE, BC, OTHER ==
[~2023-09-02] VITALS: Ht 175.3 cm; Wt 115.6 kg
[~2023-09-02 08:29] MED LIST changes: +AMLO1TAB25 PO; +B-1100TA2 PO; +CLOB0.057 TOP; +FLON1SPR NARES; +FOLI1TAB11 PO; +FURO20TA2 PO; +HYDR-3713 PO; +HYDR25TA87 PO; +OMEP1CAP73 PO; +ROSU10TA61 PO; +ROSU5TAB40 PO; -ROSU5TAB5 PO; +THIA100T7 PO
[2023-09-02] MEDS: FAMOTIDINE IV BAG 20 MG in IV 1 EA IV ONE (08:44)
[2023-09-02] MEDS: methylPREDNISolone 125MG 2ML VIAL IV ONE (08:44)
[2023-09-02] MEDS: NS 1,000 ML IV ONE (08:44)
[2023-09-02] MEDS: ALBUTEROL SULFATE 2.5MG/0.5ML INH NEB SOLN NEB SCH (08:49)
[2023-09-02 08:53] LABS: BASO % 0.3 % (0.0-1.0); EOS # 0.1 10^3/uL (0.0-0.5); EOS % 0.9 % (0.0-3.0); HEMATOCRIT 46.3 % (42.0-52.0); HEMOGLOBIN 15.2 g/dl (13.5-17.5); LYMPH # 1.3 10^3/uL (1.5-5.0); LYMPH % 22.8 % (24.0-44.0); MEAN CORPUSCULAR HEMOGLOBIN 29.9 pg (27.0-33.0); MEAN CORPUSCULAR HGB CONC 32.8 g/dl (32.0-36.5); MEAN CORPUSCULAR VOLUME 91.1 fl (80.0-96.0); MONO # 0.5 10^3/uL (0.0-0.8); MONO % 9.2 % (2.0-8.0); NEUTROPHILS # 3.8 10^3/uL (1.5-8.5); NEUTROPHILS % 66.5 % (36.0-66.0); PLATELET COUNT, AUTOMATED 198 10^3/uL (150-450); RED BLOOD COUNT 5.08 10^6/uL (4.30-6.10); WHITE BLOOD COUNT 5.8 10^3/uL (4.0-10.0)
[2023-09-02] MEDS ORDERED: BENA25CA4 PO (09:06)
[2023-09-02 09:22] LABS: ALBUMIN 3.3 G/DL (3.2-5.2); ALKALINE PHOSPHATASE 127 U/L (46-116); ALT/SGPT 19 U/L (7.0-40); AST/SGOT 43 U/L (<34); BILIRUBIN,DIRECT 0.6 MG/DL (<0.4); BILIRUBIN,TOTAL 2.2 MG/DL (0.3-1.2); BLOOD UREA NITROGEN 31 MG/DL (9-23); CALCIUM LEVEL 8.3 MG/DL (8.3-10.6); CARBON DIOXIDE LEVEL 29 MMOL/L (20-31); CHLORIDE LEVEL 103 MMOL/L (98-107); CREATININE FOR GFR 1.13 MG/DL (0.70-1.30); GLOMERULAR FILTRATION RATE > 60.0 (>49); GLUCOSE, FASTING 120 MG/DL (74-106); POTASSIUM SERUM 5.1 MMOL/L (3.5-5.1); SODIUM LEVEL 138 MMOL/L (136-145); TOTAL PROTEIN 6.9 G/DL (5.7-8.2)
[2023-09-02 12:45] VITALS: BP 137/70; TEMP 98.9; O2SAT 95
== END 2023-09-02 12:58 | disposition home or self-care (01) ==
LOC: M ED 08:29
DX: T78.04XA Anaphylactic reaction due to fruits and vegetables, initial encounter (principal); I10 Essential (primary) hypertension; E11.9 Type 2 diabetes mellitus without complications; Z86.79 Personal history of other diseases of the circulatory system; Z88.0 Allergy status to penicillin; Z88.2 Allergy status to sulfonamides; Z88.5 Allergy status to narcotic agent; Z88.6 Allergy status to analgesic agent; Z91.013 Allergy to seafood; Z91.018 Allergy to other foods; Z79.2 Long term (current) use of antibiotics; Z79.82 Long term (current) use of aspirin; Z79.811 Long term (current) use of aromatase inhibitors; Z79.899 Other long term (current) drug therapy
CPT/HCPCS: 71045; 80048; 80076; 85025; 86140; 93005; 93041; 94640; 94760; 96361; 96365; 96375; 99291; J2919

== ENCOUNTER → 2023-10-11 | Outpatient (REF) | payer MEDICARE, BC, OTHER ==
[~2023-10-11] MED LIST changes: +BENA25CA4 PO; +ONDA-282 PO; -ONDA4TAB6 PO
[2023-10-13 18:21] LABS: LYME TOTAL ANTIBODY CIA <= 0.90 Index (<=0.90)
== END ==
LOC: M LAB REF 14:46 → M LABWUC 14:46
PROVIDERS: ATTEND Nurse Practitioner Family
DX: S70.362A Insect bite (nonvenomous), left thigh, initial encounter (principal); L30.9 Dermatitis, unspecified

== ENCOUNTER → 2024-03-15 | Outpatient (CLI) | payer MEDICARE, BC, OTHER ==
[~2024-03-15] MED LIST changes: +ATOR-398 PO; +ISOVUE-370 76% 100ML VIAL As Ordered ONE; -LIPI80TA PO; -ROSU5TAB40 PO; +ROSU5TAB49 PO
== END ==
LOC: M RAD 15:26
PROVIDERS: ATTEND Otolaryngology
DX: R49.0 Dysphonia (principal)
CPT/HCPCS: 70491; 71260; Q9967

== ENCOUNTER → 2024-05-08 | Outpatient (CLI) | payer MEDICARE, BC ==
[~2024-05-08] MED LIST changes: -BAYE325T12 PO; +BAYE325T2 PO; +E-Z-GAS II EFFERVESCENT PACKET (SODIUM BICARB./CITRIC ACID/SIMETHICONE) As Ordered ONE; +E-Z-HD 98% w/w 340GM SUSP BTL As Ordered ONE; +E-Z-PAQUE 96% w/w SUSP 176GM BTL As Ordered ONE; -ISOVUE-370 76% 100ML VIAL As Ordered ONE
== END ==
LOC: M RAD 08:36
PROVIDERS: ATTEND Otolaryngology
DX: R13.10 Dysphagia, unspecified (principal)

== ENCOUNTER → 2024-06-14 | Outpatient (CLI) | payer MEDICARE, BC ==
[~2024-06-14] MED LIST changes: +BARIUM SULFATE 700 MG TABLET (E-Z-DISK) As Ordered ONE; -E-Z-GAS II EFFERVESCENT PACKET (SODIUM BICARB./CITRIC ACID/SIMETHICONE) As Ordered ONE; -E-Z-HD 98% w/w 340GM SUSP BTL As Ordered ONE; +VARIBAR NECTAR 40% w/v 240ML SUSP BTL As Ordered ONE; +VARIBAR PUDDING 40% w/v 230ML TUBE As Ordered ONE
== END ==
LOC: M RAD 10:54
PROVIDERS: ATTEND Otolaryngology
DX: R13.10 Dysphagia, unspecified (principal)

== ENCOUNTER 2024-07-10 10:17 | Outpatient (RCR) | payer MEDICARE, BC ==
[~2024-07-10 10:17] MED LIST changes: -BARIUM SULFATE 700 MG TABLET (E-Z-DISK) As Ordered ONE; -E-Z-PAQUE 96% w/w SUSP 176GM BTL As Ordered ONE; -VARIBAR NECTAR 40% w/v 240ML SUSP BTL As Ordered ONE; -VARIBAR PUDDING 40% w/v 230ML TUBE As Ordered ONE
== END 2024-07-30 ==
LOC: M ST 10:17
PROVIDERS: ATTEND Otolaryngology
DX: R13.10 Dysphagia, unspecified (principal)

== ENCOUNTER 2024-08-21 10:45 | Outpatient (RCR) | payer MEDICARE, BC ==
[~2024-08-21 10:45] MED LIST changes: +KETO120S5 TOP; -KETO2SHA8 TOP
== END 2024-08-29 ==
LOC: M ST 10:45
PROVIDERS: ATTEND Otolaryngology
DX: R13.10 Dysphagia, unspecified (principal)

== ENCOUNTER → 2025-01-22 | Outpatient (CLI) | payer MEDICARE, BC ==
[~2025-01-22] MED LIST changes: +AMMO12CR4 TOP; -AMMO12CR7 TOP
== END ==
LOC: M WUC 11:26
PROVIDERS: ATTEND Nurse Practitioner Family
DX: R05.9 Cough, unspecified (principal); R91.8 Other nonspecific abnormal finding of lung field